=== PATIENT | male | born 1970 | race Caucasian/White ===

== ENCOUNTER → 2016-11-07 | Outpatient (CLI) | payer BC ==
--- NOTE | 2016-11-07 11:24 | US ---
EXAMINATION TYPE: US axilla extremity LT DATE OF EXAM: 11/07/2016 10:42 AM COMPARISON: NONE CLINICAL HISTORY: Left axillary swelling x 2 days. no other signs and symptoms; no trauma to area; no recent infections. Findings: multiple oval hypoechoic masses (possible lymph nodes) at left axilla at area of swelling; largest anterior hypoechoic mass with minimal hyperechoic hilum= 8.0 x 5.8 x 4.1cm; largest posterio r hypoechoic mass with minimal echogenic hilum= 6.6 x 4.7 x 3.2cm IMPRESSION: 1. Multiple masses within the left axilla may represent enlarged lymph nodes correlate clinically.
--- NOTE | 2016-11-08 12:04 | USB ---
Reason for exam: clinical finding. Indicated problem(s): lump or thickening in the left breast. US Breast LT Left breast ultrasound including all four quadrants, the retroareolar region and axilla demonstrates multiple axillary nodes, see ultrasound of left axilla. ASSESSMENT: Negative, BI-RAD 1 RECOMMENDATION: Surgical consultation of the left breast. Patient was scanned in the ER. Called Dr. Hendricks with ultrasound findings. PRELIMINARY REPORT CALLED AND FAXED TO DR. HENDRICKS ON 11/08/16 AT 300/TMP.
== END | disposition home or self-care (01) ==
LOC: RADXRMAIN 09:36
PROVIDERS: ATTEND Family Medicine
DX: R22.2 Localized swelling, mass and lump, trunk (principal)

== ENCOUNTER → 2016-11-17 | Outpatient (CLI) | payer BC ==
--- NOTE | 2016-11-17 22:34 | CT ---
EXAMINATION TYPE: CT chest wo con DATE OF EXAM: 11/17/2016 7:24 PM COMPARISON: NONE HISTORY: 46-year-old male left axillary swelling TECHNIQUE: Contiguous axial scanning of the contrast without IV contrast. Coronal and sagittal recons tructions performed. CT DLP: 569.9 mGycm Automated exposure control for dose reduction was used. FINDINGS: Heart is normal size without pericardial effusion. Mild coronary vessel calcifications are present. Aorta is normal caliber with conventional arch vessel branching anatomy. No mediastinal or hilar lymphadenopathy seen. However, there is venkat left axillary lymphadenopathy. 2 large left subpectoral lymph nodes measure 3.3 x 4.6 cm and 3.0 x 7.1 cm. Left axillary lymph node measures 4.4 x 5.1 cm. There is mild diffuse bronchial wall thickening without consolidation or pleural effusion. Mild right greater than left, asymmetric gynecomastia. There is a small hiatal hernia. Subcentimeter hypodensity lateral right kidney too small for accurate CT characterization. Bones: Mild endplate spondylosis throughout. No osseous destructive process. IMPRESSION: 1. MARKED LEFT AXILLARY LYMPHADENOPATHY WITH SUBPECTORAL LYMPH NODES MEASURING UP TO 7.1 CM AND LEFT AXILLARY LYMPH NODES MEASURING UP TO 5.1 CM. CONSIDER DIRECT TISSUE SAMPLING. LYMPHOMA AND METASTATIC DISEASE ARE IN THE DIFFERENTIAL. 2. MILD DIFFUSE BRONCHIAL WALL THICKENING COULD REPRESENT BRONCHITIS OR CHRONIC ASTHMA. 3. SMALL HIATAL HERNIA.
== END | disposition home or self-care (01) ==
LOC: RADCTMAIN 18:55
PROVIDERS: ATTEND Family Medicine
DX: R59.0 Localized enlarged lymph nodes (principal); J98.09 Other diseases of bronchus, not elsewhere classified
CPT/HCPCS: 71250

== ENCOUNTER 2016-11-28 08:53 | Day surgery (SDC) | payer BC ==
[2016-11-28 09:37] VITALS: RESP 16; TEMP 98.1
[2016-11-28 10:29] VITALS: BP 137/78; PULSE 94
--- NOTE | 2016-11-28 10:31 | US ---
Ultrasound-guided core biopsy left axilla mass CLINICAL HISTORY: Large left axilla mass FINDINGS: The procedure was explained to the patient. The risks, complications, benefits and alternatives were discussed and any questions were answered. Informed consent was obtained. Patient was placed supin e on the ultrasound table and prepped and draped in the usual sterile fashion. Utilizing a 18 gauge needle, 4 passes were made into the left axillary mass. Patient was stable throughout the procedure. Pathology is pending. All elements of maximal barrier technique were utilized. IMPRESSION: 1. Successful ultrasound guided core biopsy left axillary mass.
== END 2016-11-28 10:35 | disposition home or self-care (01) ==
LOC: RADPROMAIN 08:53
PROVIDERS: ATTEND Family Medicine
DX: D36.0 Benign neoplasm of lymph nodes (principal)
CPT/HCPCS: 38505; 76942; 88305; 88312; 88313; 88341; 88342

== ENCOUNTER 2016-12-30 06:24 | Day surgery (SDC) | payer BC ==
[2016-12-29 14:11] VITALS: BMI 38.0
[~2016-12-30 06:24] MED LIST: DEXAMETHASONE SOD PHOSPHATE 10 MG/ML 1 ML VIAL IV ONE; HEPARIN SODIUM,PORCINE 5,000 UNIT/ML 1 ML VIAL SQ ONE; HYDROmorphone 1 MG/ML 1 ML SYRINGE IVP PRN; LACTATED RINGERS 1,000 ML IV SCH; MIDAZOLAM 2 MG/2 ML VIAL IV PRN; ONDANSETRON 4 MG/2 ML VIAL IVP ONE; Pre Op ABX Message 1 EACH MISC MISCELLANE ONE; SCOPOLAMINE 1.5MG/72HR PATCH TRANSDERM ONE
[2016-12-30] MEDS ORDERED: LIDOCAINE 1% 20 ML VIAL (10MG/ML) FOR IV START INTRADERMA ONE (06:42)
[2016-12-30 06:51] LABS: Glucose,Whole Blood 137 mg/dL (75-99)
[2016-12-30 06:57] VITALS: TEMP 98.4
[2016-12-30] MEDS ORDERED: GLYCOPYRROLATE 0.2 MG/ML 2 ML VIAL ONE (07:40)
[2016-12-30] MEDS ORDERED: fentaNYL (PF) 50 MCG/ML 2 ML AMP ONE (07:40)
[2016-12-30] MEDS ORDERED: PROPOFOL 10 MG/ML 20 ML VIAL IV ONE (07:40)
[2016-12-30] MEDS ORDERED: ePHEDrine 50 MG/ML 1 ML AMP ONE (07:40)
[2016-12-30] MEDS ORDERED: MIDAZOLAM 2 MG/2 ML VIAL ONE (07:40)
[2016-12-30] MEDS ORDERED: LIDOCAINE 1% INJ 10MG/ML (20 ML MDV) ONE (07:40)
[2016-12-30] MEDS ORDERED: SUCCINYLCHOLINE CHLORIDE VIAL 200 MG/10 ML VIAL IV ONE (07:40)
[2016-12-30] MEDS ORDERED: SODIUM CHLORIDE 0.9% 50 ML with CLINDAMYCIN 900 MG IV ONE ×2 (07:59)
[2016-12-30] MEDS ORDERED: BUPIVACAIN-EPI 0.25%-1:200,000 30 ML VIAL SQ ONE ×2 (08:13)
[2016-12-30] MEDS ORDERED: LACTATED RINGERS 1,000 ML IV ONE (09:22)
--- NOTE | 2016-12-30 09:48 | P.OP ---
Date of Procedure: 12/30/16 Preoperative Diagnosis: Left axillary lymphadenopathy Morbid obesity BMI 38 Type 2 diabetes mellitus Hypertension Postoperative Diagnosis: Same Procedure(s) Performed: Left deep axillary open lymph node biopsy Anesthesia: MISHAA, local Surgeon: Flory Desir Pathology: other Condition: other (ASA3) Disposition: PACU Indications for Procedure: 46 years old male presents with massive left inguinal lymphadenopathy. Computed tomography scan showed an enlarged axillary lymph nodes. Informed consent obtained and patient elected to undergo left axillary lymph node biopsy for diagnostic purposes Operative Findings: 8 x 10 x 6 cm enlarged lymph node identified in the left axilla which extended deep to the level to lymph nodes. A 2 x 1 x 1 cm specimen was excised and sent off for pathologic examination Description of Procedure: General anesthesia with endotracheal intubation was performed as per anesthesia team. No muscle relaxants were given. Chlorhexidine was used to prep the left axilla. Sterile drapes were applied. A timeout was performed to verify correct patient and correct procedure. Patient was confirmed to receive perioperative IV antibiotics, heparin 5000 units subcutaneous injection for the VTE prophylaxis and bilateral SCDs were placed. A 4 cm skin incision was made along the inferior axillary hairline. This was extended deep to the subcutaneous tissue. The clavicopectoral fascia was identified and incised. Bulky large lymph node measuring at least 8 x 10 x 6 cm was identified extending deep into the level III lymph node area. Lymph node appeared vascular and surrounded by fibrofatty tissue which was taken down using a handheld ligasure. The lymph node appeared to be extending deep into the axillary space. Since this is only for diagnostic purpose decision was made to perform an excisional biopsy. 2 x 1 x 2 cm piece of lymph node was excised using hand-held LigaSure and sent fresh for pathologic exam. Hemostasis was checked. A SEMAJ drain was left in the axilla and was brought out through a separate stab incision . The resulting cavity was checked for hemostasis. This was closed in layers using 3-0 Vicryl interrupted sutures and 4-0 Monocryl running subcuticular sutures. The cavity was then closed in layers using 3-0 interrupted Vicryl and 4-0 running Monocryl subcuticular sutures. Dermabond was applied. Sponge, instrument and needle count were correct 2. Patient tolerated the procedure well and was taken to postanesthesia care unit in stable condition LEFT AXILLARY LYMPH NODE, EXCISIONAL BIOPSY ([id number] A1-A4; 12/30/16): NODULAR LYMPHOCYTE PREDOMINANT HODGKIN LYMPHOMA.
[2016-12-30 10:09] VITALS: RESP 16
[2016-12-30 11:43] VITALS: BP 124/61; PULSE 80
[2017-01-02 16:26] LABS: Mis test requested (Non-blood) B Cell Flow Cytometr
== END 2016-12-30 12:03 | disposition home or self-care (01) ==
LOC: OR 06:24
PROVIDERS: ATTEND Surgery
DX: C81.04 Nodular lymphocyte predominant Hodgkin lymphoma, lymph nodes of axilla and upper limb (principal); E66.01 Morbid (severe) obesity due to excess calories; Z68.38 Body mass index [BMI] 38.0-38.9, adult; E11.9 Type 2 diabetes mellitus without complications; I10 Essential (primary) hypertension; E78.5 Hyperlipidemia, unspecified; J45.909 Unspecified asthma, uncomplicated; G47.33 Obstructive sleep apnea (adult) (pediatric); K21.9 Gastro-esophageal reflux disease without esophagitis; Z88.1 Allergy status to other antibiotic agents; Z88.0 Allergy status to penicillin; Z88.2 Allergy status to sulfonamides; Z79.1 Long term (current) use of non-steroidal anti-inflammatories (NSAID); Z79.899 Other long term (current) drug therapy; Z87.891 Personal history of nicotine dependence
CPT/HCPCS: 88184; 88185; 88342; 88307; 88341; 38525; J2250; J0330; J1644; J1100; J2405; J2001; J3010; J2704

== ENCOUNTER 2017-01-13 10:00 | Day surgery (SDC) | payer BC ==
[2017-01-13 09:32] VITALS: BMI 38.0
[2017-01-13] MEDS ORDERED: LACTATED RINGERS 1,000 ML IV SCH (11:07)
[2017-01-13] MEDS ORDERED: SCOPOLAMINE 1.5MG/72HR PATCH TRANSDERM ONE (11:07)
[2017-01-13] MEDS ORDERED: ONDANSETRON 4 MG/2 ML VIAL IVP ONE (11:07)
[2017-01-13] MEDS ORDERED: DEXAMETHASONE SOD PHOSPHATE 10 MG/ML 1 ML VIAL IV ONE (11:07)
[2017-01-13] MEDS ORDERED: MIDAZOLAM 2 MG/2 ML VIAL IV PRN (11:07)
[2017-01-13] MEDS ORDERED: HYDROmorphone 1 MG/ML 1 ML SYRINGE IVP PRN (11:07)
[2017-01-13 11:31] VITALS: RESP 18; TEMP 98
[2017-01-13 11:33] LABS: Glucose,Whole Blood 113 mg/dL (75-99)
[2017-01-13] MEDS ORDERED: CLINDAMYCIN 900 MG in DEXTROSE 5% IN WATER 50 ML IVPB STA ×2 (13:08)
--- NOTE | 2017-01-13 13:13 | P.GSHP ---
History of Present Illness H&P Date: 01/13/17 Chief Complaint: Lymphoma 46 years old male presented with axillary lymphadenopathy. He is status post open left axillary lymph node biopsy and shows non-Hodgkin's lymphoma. Informed consent obtained and patient elected to undergo MediPort placement for chemotherapy. Past Medical History Past Medical History: Asthma, Cancer, Diabetes Mellitus, GERD/Reflux, Hyperlipidemia, Hypertension, Sleep Apnea/CPAP/BIPAP Additional Past Medical History / Comment(s): lymph node enlargement, childhood asthma, bronchitis , hodgkins lymphoma History of Any Multi-Drug Resistant Organisms: None Reported Past Surgical History: Orthopedic Surgery Additional Past Surgical History / Comment(s): jacki wrist carpal tunnel, vasectomy, colonoscopy, lymph node biopsy Past Anesthesia/Blood Transfusion Reactions: No Reported Reaction Past Psychological History: No Psychological Hx Reported Smoking Status: Former smoker Past Alcohol Use History: Rare Additional Past Alcohol Use History / Comment(s): quit smoking 2014 approx, chew and smoking for about 10 -15 yrs on and off Past Drug Use History: None Reported - Past Family History Father Family Medical History: Cancer Additional Family Medical History / Comment(s): prostate Medications and Allergies Home Medications Medication Instructions Recorded Confirmed Type Empagliflozin/Linagliptin 1 tab PO DAILY 11/22/16 01/13/17 History [Glyxambi 25 mg-5 mg Tablet] Ibuprofen [Motrin] 400 mg PO Q6HR PRN 11/22/16 01/13/17 History Cetirizine HCl [Zyrtec] 10 mg PO DAILY 12/29/16 01/13/17 History Lisinopril-Hctz 20-12.5 mg 1 tab PO DAILY 12/29/16 01/13/17 History [Zestoretic 20-12.5] Sudafed(Dose Unknown) 2 tab PO QAM 12/29/16 01/13/17 History Allergies Allergy/AdvReac Type Severity Reaction Status Date / Time penicillin G Allergy Dyspnea Verified 01/13/17 09:15 Penicillins Allergy Rash/Hives Verified 01/13/17 09:15 Sulfa (Sulfonamide Allergy Rash/Hives Verified 01/13/17 09:15 Antibiotics) cephalexin [From Keflex] AdvReac Rash/Hives Verified 01/13/17 11:13 Surgical - Exam Vital Signs Temp Pulse Resp BP Pulse Ox 98.0 F 64 18 121/67 98 01/13/17 11:28 01/13/17 11:28 01/13/17 11:28 01/13/17 11:28 01/13/17 11:28 General: Patient is alert and oriented to time, place and person and cooperative with exam. He is not in acute distress. HEENT: No pallor, no icterus, no thyroid enlargement, no cervical lymphadenopathy. Chest: Bilateral equal breath sounds present. No wheezes, no crackles. Cardiovascular: Regular rate and rhythm. Abdomen: Soft, nontender, nondistended. Left axillary incision well healed. SEMAJ drain in place and has serous discharge Neurologic: Cranial nerves II-XII intact. Strength upper and lower extremities 5/5. No focal neurologic deficits. Gait is normal. Psychiatric: No anxiety or psychosis. No suicidal thoughts. Results - Labs Abnormal Lab Results - Last 24 Hours (Table) 01/13/17 Range/Units 11:31 POC Glucose (mg/dL) 113 H (75-99) mg/dL Assessment and Plan (1) Hodgkin lymphoma Status: Acute (2) Hodgkin lymphoma Status: Acute Plan: 46 years old male with Hodgkin's lymphoma and axillary lymphadenopathy 1. Status post open axillary lymph node biopsy 2. Mediport placement for chemotherapy. 3. Informed consent obtained from the patient after explaining the risks, benefits and potential complications including bleeding, infection, inadvertent arterial injury, pneumothorax and patient elected to undergo the procedure.
[2017-01-13] MEDS ORDERED: fentaNYL (PF) 50 MCG/ML 2 ML AMP ONE (13:26)
[2017-01-13] MEDS ORDERED: KETAMINE 10 MG/ML 20 ML VIAL ONE (13:26)
[2017-01-13] MEDS ORDERED: PROPOFOL 10 MG/ML 20 ML VIAL IV ONE (13:26)
[2017-01-13] MEDS ORDERED: MIDAZOLAM 2 MG/2 ML VIAL ONE (13:26)
[2017-01-13] MEDS ORDERED: BUPIVACAIN-EPI 0.25%-1:200,000 30 ML VIAL SQ ONE ×2 (13:59)
[2017-01-13] MEDS ORDERED: HEPARIN SODIUM,PORCINE 100 UNIT/ML 5 ML VIAL IV ONE (14:00)
[2017-01-13] MEDS ORDERED: LACTATED RINGERS 1,000 ML IV ONE (14:02)
[2017-01-13 14:44] VITALS: PULSE 67
--- NOTE | 2017-01-13 14:45 | P.OP ---
Date of Procedure: 01/13/17 Preoperative Diagnosis: Hodgkin's lymphoma Obesity BMI 38 Hypertension Postoperative Diagnosis: Same Procedure(s) Performed: Right internal jugular 8-Nepali Mediport placement under SonoSite and fluoroscopic guidance Implants: POWERPORT REF:[id number] lOT #[id number] 2018-10-05 Anesthesia: MAC Surgeon: Flory Desir Estimated Blood Loss (ml): 10 Pathology: none sent Condition: stable Disposition: PACU Indications for Procedure: 46 years old male recently diagnosed with Hodgkin lymphoma presents for Mediport placement for chemotherapy. Informed consent obtained and he elected to undergo Mediport placement under SonoSite and fluoroscopic guidance. Description of Procedure: The patient was brought to the operating room and placed in supine position with both arms tucked. A footboard was placed. Chlorhexidine was used to prep the neck followed by application of sterile drapes and an Ioban dressing . A timeout was performed to verify correct patient and correct procedure. Patient was confirmed to receive perioperative IV antibiotics and VTE prophylaxis. An ultrasound was performed of the right neck to identify the carotid artery and internal jugular vein. The internal jugular vein was compressible and patent . Photodocumentation was made. Local anesthetic was infiltrated to create a field block. Seldinger technique was used and the right internal jugular vein was accessed under direct ultrasound guidance. There was good backflow of dark venous blood. The guidewire was inserted and fluoroscopic images obtained to confirm the tip in SVC. The needle was removed followed by insertion of a dilator peel-away sheath. Local anesthetic was infiltrated along the inferior aspect of the right clavicle. A 2.5 cm skin incision was made and dissection was carried up to the pectoralis major muscle. A pocket was created for the port. The catheter tubing was connected to the port using the conector after flushing both the port and the catheter with normal saline. The tunneling device was connected to the end of the catheter and after placement of the port in the subcutaneous pocket the tunneling device was passed from the lower incision to the counter incision in the neck. The catheter was measured at the junction of SVC and right atrium. The inner cannula of the peel-away sheath was removed and catheter was gradually inserted. The peel-away sheath was gradually removed. Fluoroscopic image confirmed the tip of the catheter at the junction of SVC and right atrium. There was no kink, fold or torsion of the catheter and the port. The Bone needle was used to access the port and easy backflow was obtained. This was flushed with 10 mL of normal saline and 10 mL of Hep-Lock was inserted. The skin incision was closed in 3 layers using 3-0 Vicryl interrupted stitches and a running suture of 4-0 Monocryl. Counter incision in the neck was also closed using 3-0 Vicryl followed by 4-0 Monocryl. Dermabond skin glue was applied followed by Telfa and Tegaderm dressing. The sponge, instrument and needle count were correct x2 Patient tolerated the procedure well and was taken to post anesthesia care unit in stable condition Final chest x-ray showed the tip of the catheter in SVC and no pneumothorax.
--- NOTE | 2017-01-13 15:09 | XR ---
EXAMINATION TYPE: XR chest 1V confirm line [facility] DATE OF EXAM: 01/13/2017 3:04 PM HISTORY: port placement . REFERENCE: NONE. FINDINGS: A MediPort is in place via a right internal jugular approach. Its tip is in the superior ve na cava. I do not see evidence of pneumothorax. The lungs are clear. Pleural spaces are clear. Heart size is normal. IMPRESSION: STATUS POST MEDIPORT PLACEMENT
[2017-01-13 15:11] VITALS: BP 124/56
--- NOTE | 2017-01-16 09:13 | FL ---
Fluoroscopy HISTORY: Central catheter placement 44 seconds fluoroscopy time supplied to the referring clinician. 1 intraoperative C-arm images docum ent the procedure. See dictated report from general surgery.
--- NOTE | 2017-01-18 09:26 | CDI ---
Pt Name: Imtiaz Underwood CONFIDENTIAL MR#: [id number] Adm Date: 01/13/2017 10:00:00 AM Printed:01/18/2017 Physician Documentation Request Page 1 of 2 ICD-10-CM Ready Physicians Documentation Request Patient: Imtiaz Underwood EPI: [id number] Account: [id number] Payer: [facility] Facility: [facility] Location: - Admit Date: 01/13/2017 10:00:00 AM Query Send By: Blanca Arzola Phone #: Ext. Communication Date: 01/18/2017 9:20:00 AM Clarification Outpatient By submitting this query, we are merely seeking further clarification of documentation to accurately reflect all conditions that you are monitoring, evaluating, treating or that extend the hospitalization or utilize additional resources of care. Please utilize your independent clinical judgment when addressing the question(s) below. Dear Doctor Flory Desir, The patients Clinical Indicators include: see below Documentation Clarification OP There is conflicting documentation on this account regarding the patient's lymphoma diagnosis. Page 1 of H&P, Anesthesia Record, and the Order state Non- Hodgkin's Lymphoma. Page 3 of H&P and Op Note state Hodgkin's Lymphoma. Please issue an addendum on this account to clarify if the patient has: A. Non-Hodgkin's Lymphoma B. Hodgkin's Lymphoma The correct diagnosis is needed for proper coding and billing purposes. Thank you. PLEASE DOCUMENT ANY ADDITIONAL DIAGNOSES AND/OR SPECIFICITY IN THE PROGRESS NOTES AND/OR DISCHARGE SUMMARY. Agreed & documented Unable to determine/unknown Disagree with the above request Need to discuss MTDD
== END 2017-01-13 16:04 | disposition home or self-care (01) ==
LOC: OR 10:00
PROVIDERS: ATTEND Surgery
DX: C81.94 Hodgkin lymphoma, unspecified, lymph nodes of axilla and upper limb (principal); E66.9 Obesity, unspecified; Z68.38 Body mass index [BMI] 38.0-38.9, adult; I10 Essential (primary) hypertension; J45.909 Unspecified asthma, uncomplicated; J44.9 Chronic obstructive pulmonary disease, unspecified; E11.9 Type 2 diabetes mellitus without complications; K21.9 Gastro-esophageal reflux disease without esophagitis; E78.5 Hyperlipidemia, unspecified; G47.33 Obstructive sleep apnea (adult) (pediatric); Z79.1 Long term (current) use of non-steroidal anti-inflammatories (NSAID); Z79.899 Other long term (current) drug therapy; Z88.0 Allergy status to penicillin; Z88.2 Allergy status to sulfonamides; Z87.891 Personal history of nicotine dependence
CPT/HCPCS: 36561; 77001; C1788; J2250; J1642; J1100; J2405; J3010; J2704

== ENCOUNTER → 2017-01-14 | Outpatient (CLI) | payer BC ==
--- NOTE | 2017-01-15 06:39 | PE ---
EXAMINATION TYPE: PET CT fusion skull to thigh DATE OF EXAM: 01/14/2017 1:23 PM CLINICAL HISTORY: Lymphoma initial staging study after biopsy left axillary level December 30, 2016. TECHNIQUE: Following the intravenous administration of 13.12 mCi of F-18 FDG, whole body images are performed from the skull base to the midthigh. Images are reviewed on the computer in the coronal, axial, and sagittal planes. Reconstructed rotating images are created on independent workstation and reviewed on the computer. A non-contrast CT is performed in conjunction with the PET scan. COMPARISON: CT chest November 17, 2016. FINDINGS: SKULL BASE AND NECK: No suspicious hypermetabolic uptake is seen in the neck to suggest neck adenopa thy. CHEST, MEDIASTINUM, AND HILAR REGION: Corresponding to CT there are multiple enlarged left axillary l ymph nodes with abnormal hypermetabolic uptake, for reference one of the largest lymph nodes is infer iorly measuring 5.5 x 3.3 cm on axial image 95 with max SUV of 4.62. There is percutaneous drainage c atheter from recent biopsy without significant residual fluid collection. No additional areas of abnormal adenopathy or hypermetabolic uptake are seen in the chest including r ight axilla or mediastinum. ABDOMEN AND PELVIS: No suspicious hypermetabolic uptake is seen in the abdomen or pelvis. No hepatosp lenomegaly is noted. No suspicious groin adenopathy is seen. OSSEOUS STRUCTURES: No suspicious hypermetabolic uptake is seen in osseous structures. OTHER CT: There is hypoplastic or small caliber left maxillary sinus. There is right internal jugular Mediport catheter with tip in SVC. Liver is isodense relative to spleen suggesting mild diffuse fatty infiltration. There are some diverticula scattered throughout the colon. No acute diverticulitis is evident. IMPRESSION: Abnormal adenopathy with hypermetabolic uptake corresponds to biopsy-proven lymphoma left axillary region. No additional areas of malignancy identified in the remainder of body.
== END | disposition home or self-care (01) ==
LOC: RADPETMAIN 07:56
PROVIDERS: ATTEND Internal Medicine Hematology & Oncology
DX: R59.0 Localized enlarged lymph nodes (principal)
CPT/HCPCS: 78815; A9552

== ENCOUNTER 2017-01-16 07:00 | Day surgery (SDC) | payer BC ==
[2017-01-12 15:14] VITALS: BMI 38.0
[~2017-01-16 07:00] MED LIST changes: -DEXAMETHASONE SOD PHOSPHATE 10 MG/ML 1 ML VIAL IV ONE; -HEPARIN SODIUM,PORCINE 5,000 UNIT/ML 1 ML VIAL SQ ONE; -HYDROmorphone 1 MG/ML 1 ML SYRINGE IVP PRN; -MIDAZOLAM 2 MG/2 ML VIAL IV PRN; -ONDANSETRON 4 MG/2 ML VIAL IVP ONE; -Pre Op ABX Message 1 EACH MISC MISCELLANE ONE; -SCOPOLAMINE 1.5MG/72HR PATCH TRANSDERM ONE
[2017-01-16] MEDS ORDERED: LIDOCAINE 1% 20 ML VIAL (10MG/ML) FOR IV START INTRADERMA ONE (07:40)
[2017-01-16 07:43] VITALS: TEMP 98.8
[2017-01-16 07:49] LABS: Glucose,Whole Blood 129 mg/dL (75-99)
[2017-01-16] MEDS ORDERED: PROPOFOL 10 MG/ML 20 ML VIAL IV ONE (08:05)
[2017-01-16 08:34] VITALS: RESP 16
[2017-01-16 08:43] LABS: Basophils # (A) 0.1 k/uL (0-0.2); Basophils % (A) 1 %; CHCM 34.2; Eosinophils # (A) 0.2 k/uL (0-0.7); Eosinophils % (A) 3 %; HCT 49.6 % (39.0-53.0); HDW 2.62; HGB 16.6 gm/dL (13.0-17.5); Luc # (Auto) 0.23; Luc % (Auto) 3; Lymphocytes # (A) 1.6 k/uL (1.0-4.8); Lymphocytes % (A) 22 %; MCH 29.5 pg (25.0-35.0); MCHC 33.5 g/dL (31.0-37.0); Mean Platelet Volume 7.5; Monocytes # (A) 0.9 k/uL (0-1.0); Monocytes % (A) 12 %; Neutrophils # (A) 4.2 k/uL (1.3-7.7); Neutrophils % (A) 59 %; RBC 5.63 m/uL (4.30-5.90); RDW 12.8 % (11.5-15.5); WBC 7.2 k/uL (3.8-10.6); WBC (Perox) 7.31
[2017-01-16 08:57] VITALS: BP 119/68; PULSE 69
--- NOTE | 2017-01-16 20:35 | OP ---
DATE OF SERVICE: 01/16/2017 SURGEON: JACQUELIN WILL MD PREOPERATIVE DIAGNOSIS: Recent diagnosis of Hodgkin lymphoma for staging. PROCEDURE: Bone marrow aspiration and biopsy. DESCRIPTION OF PROCEDURE: After obtaining informed consent from the patient, the procedure was performed in the endoscopy suite under general anesthesia, performed by the Anesthesia Team. The patient was put in the left lateral decubitus position. The ( ) superior iliac crest was localized. The skin was cleansed with ChloraPrep. All sterile procedures were followed. Next, 2 mL 1% Xylocaine was used for local anesthetic. A 4 inch Jamshidi needle was inserted, about 15 mL of aspirate and about 1.5 cm core biopsy was obtained without any difficulties. Pressure applied afterward. There was negligible blood loss. The patient tolerated the procedure very well without any immediate complications.
== END 2017-01-16 09:02 | disposition home or self-care (01) ==
LOC: OR 07:00
PROVIDERS: ATTEND Internal Medicine Hematology & Oncology
DX: C81.04 Nodular lymphocyte predominant Hodgkin lymphoma, lymph nodes of axilla and upper limb (principal); E11.9 Type 2 diabetes mellitus without complications; I10 Essential (primary) hypertension; J45.909 Unspecified asthma, uncomplicated; Z79.84 Long term (current) use of oral hypoglycemic drugs; Z79.1 Long term (current) use of non-steroidal anti-inflammatories (NSAID); Z79.891 Long term (current) use of opiate analgesic; Z79.899 Other long term (current) drug therapy; Z88.2 Allergy status to sulfonamides; Z91.010 Allergy to peanuts; Z87.891 Personal history of nicotine dependence
CPT/HCPCS: 85025; 38221; J2704; G0364

== ENCOUNTER → 2017-03-25 | Outpatient (CLI) | payer BC ==
--- NOTE | 2017-03-27 18:08 | PE ---
EXAMINATION TYPE: PET CT fusion skull to thigh DATE OF EXAM: 03/25/2017 2:49 PM CLINICAL HISTORY: 46-year-old male Hodgkin's lymphoma, subsequent staging. Chemotherapy last on 017. TECHNIQUE: Following the intravenous administration of 14.65 mCi of F-18 FDG, whole body images are performed from the skull base to the midthigh. Images are reviewed on the computer in the coronal, axial, and sagittal planes. Reconstructed rotating images are created on independent workstation and reviewed on the computer. A localization and attenuation correction CT is performed in conjunction with the PET scan. Glucose level: 125 mg/dL COMPARISON: 01/14/2017 FINDINGS: PET: Physiologic FDG uptake within the neck. Left axillary and subpectoral lymphadenopathy is redemonstrated. The largest lymph node in the axilla measures 3.8 x 2.5 cm with additional small axillary lymph nodes measuring up to 1.3 cm short axis. This is in comparison to 5.4 x 3.6 and 2.3 cm, respectively on prior. Subpectoral lymph node measures up to 2.5 x 1.4 cm versus 4.5 x 2.9 cm, previously. These lymph nodes show significantly decreased FDG uptake, now Max SUV 1.8 versus 4.6, previously. Variable mild bowel activity likely physiologic. Otherwise, physiologic FDG uptake within the abdomen and pelvis. ATTENUATION CORRECTION CT: Right anterior chest wall injection port with catheter tip at the lower SVC. Visualized paranasal sinuses and mastoid air cells are clear. No cervical lymphadenopathy seen. The heart is upper limits of normal in size and coronary vessel calcifications which are a marker for coronary artery disease. Aorta is normal caliber with conventional arch vessel branching anatomy. No mediastinal or hilar lymphadenopathy appreciated on noncontrast CT. No consolidation or pleural effu jud. There is a small hiatal hernia. No dilated small bowel, free fluid, or free air. Scattered small mese nteric lymph nodes are similar. Tiny fatty umbilical hernia. No abnormal fluid collection in the pelvis. A prominent 9 mm right external iliac chain lymph node is unchanged from prior and shows no discrete FDG uptake. Bones: Degenerative anterior spurring at the SI joints. Mild endplate spondylosis thoracic spine and cervical spondylosis. No osseous destructive process. IMPRESSION: Decreasing size of the left axillary and subpectoral lymph nodes. The largest measures 3.8 cm versus 5.4 cm, previously. No significant residual metabolic activity remains.
== END | disposition home or self-care (01) ==
LOC: RADPETMAIN 07:28
PROVIDERS: ATTEND Internal Medicine Hematology & Oncology
DX: C81.04 Nodular lymphocyte predominant Hodgkin lymphoma, lymph nodes of axilla and upper limb (principal)
CPT/HCPCS: 78815; A9552

== ENCOUNTER 2017-05-24 10:01 | Day surgery (SDC) | payer BC ==
[2017-05-18 11:34] VITALS: BMI 39.0
[~2017-05-24 10:01] MED LIST changes: +CLINDAMYCIN 900 MG in DEXTROSE 5% IN WATER 50 ML IVPB ONE; +LIDOCAINE 1% 20 ML VIAL (10MG/ML) FOR IV START INTRADERMA PRN
[2017-05-24] MEDS ORDERED: BUPIVACAIN-EPI 0.25%-1:200,000 30 ML VIAL SQ ONE ×3 (10:08→11:05)
[2017-05-24 10:33] VITALS: RESP 16; TEMP 99.2
[2017-05-24 10:33] LABS: Glucose,Whole Blood 128 mg/dL (75-99)
[2017-05-24] MEDS ORDERED: LIDOCAINE 1% 20 ML VIAL (10MG/ML) FOR IV START INTRADERMA ONE (10:38)
[2017-05-24] MEDS ORDERED: DEXAMETHASONE SOD PHOSPHATE 10 MG/ML 1 ML VIAL IV ONE (10:38)
[2017-05-24] MEDS ORDERED: ONDANSETRON 4 MG/2 ML VIAL IVP ONE (10:39)
[2017-05-24] MEDS ORDERED: fentaNYL (PF) 50 MCG/ML 2 ML AMP ONE (10:43)
[2017-05-24] MEDS ORDERED: PROPOFOL 10 MG/ML 20 ML VIAL IV ONE (10:43)
[2017-05-24] MEDS ORDERED: MIDAZOLAM 2 MG/2 ML VIAL ONE (10:43)
[2017-05-24] MEDS ORDERED: LIDOCAINE 1% INJ 10MG/ML (20 ML MDV) ONE (10:43)
[2017-05-24 12:01] VITALS: BP 130/59; PULSE 68
--- NOTE | 2017-05-26 18:46 | P.OP ---
Date of Procedure: 05/24/17 Preoperative Diagnosis: Hodgkin's lymphoma status post chemo and radiation Postoperative Diagnosis: Same Procedure(s) Performed: Removal of right internal jugular Port-A-Cath catheter Implants: NA Anesthesia: MAC Surgeon: Flory Desir Pathology: none sent Condition: stable Disposition: PACU Indications for Procedure: 46 years old male status post chemo and radiation for Hodgkin's lymphoma presents for MediPort removal. Informed consent obtained and patient elected to undergo the procedure. Operative Findings: Right internal jugular Mediport and catheter was removed completely Description of Procedure: This and was brought to the operating room and placed in supine position. IV sedation was given as per anesthesia team. A timeout was performed to verify correct patient and correct procedure. Patient was confirmed to receive perioperative IV antibiotics. Chlorhexidine was used to prep the skin followed by application of sterile drapes. A 2.5 cm skin incision was made along the prior right infraclavicular incision. Circumferential dissection was carried around until all the sutures were removed. The port as well as the catheter was removed completely. Pressure was held at the entry site. The resulting defect was closed in 2 layers using interrupted sutures of 3-0 Vicryl and running 4-0 Monocryl. Dermabond skin glue was applied. Sponge, instrument and needle count were correct 2. Patient tolerated the procedure well and was taken to postanesthesia care unit in stable condition
== END 2017-05-24 12:06 | disposition home or self-care (01) ==
LOC: OR 10:01
PROVIDERS: ATTEND Surgery
DX: Z45.2 Encounter for adjustment and management of vascular access device (principal); C81.90 Hodgkin lymphoma, unspecified, unspecified site; Z92.3 Personal history of irradiation; Z92.21 Personal history of antineoplastic chemotherapy; J45.909 Unspecified asthma, uncomplicated; G47.33 Obstructive sleep apnea (adult) (pediatric); Z99.89 Dependence on other enabling machines and devices; Z88.1 Allergy status to other antibiotic agents; Z88.0 Allergy status to penicillin; Z88.2 Allergy status to sulfonamides; Z79.899 Other long term (current) drug therapy; Z87.891 Personal history of nicotine dependence
CPT/HCPCS: 36590; J2250; J1100; J2405; J2001; J3010; J2704

== ENCOUNTER → 2017-07-01 | Outpatient (CLI) | payer BC ==
--- NOTE | 2017-07-01 12:54 | PE ---
EXAMINATION TYPE: PET CT fusion skull to thigh DATE OF EXAM: 07/01/2017 COMPARISON: 03/28/2017 Prior PET/CT: 03/25/2017 HISTORY: Hodgkin's lymphoma. TECHNIQUE: Following the intravenous administration of 13.5 mCi of F-18 FDG, whole body images are p erformed from the skull base to the midthigh. Images are reviewed on the computer in the coronal, ax ial, and sagittal planes. Reconstructed rotating images are created on independent workstation and r eviewed on the computer. A localization and attenuation correction CT is performed in conjunction w ith the PET scan. DLP: 665.81 mGycm SCAN: Subsequent follow-up Blood glucose: 135 mg/dL Average Mediastinum SUV: 1.2 Average Liver SUV: 2.2 FINDINGS: NECK: No abnormal uptake THORAX: No abnormal uptake. There is very subtle signal within the enlarged left axillary lymph node measuring 1.7 SUV. No suspicious mediastinal or axillary adenopathy is otherwise hyperintense. ABDOMEN: No abnormal uptake PELVIS: No abnormal uptake OSSEOUS STRUCTURES: No abnormal uptake LOCALIZATION CT: There is a 2.4 cm lymph node left axillary region. A small lymph nodes in the pretra cheal space. The ascending thoracic aorta at the level of the main pulmonary artery is 3.7 cm. The ma in pulmonary artery the bifurcation is 3.3 cm. Coronary artery calcification is present. Small hiatal hernia is present. Some shotty lymphadenopathy is in the periaortic region. Few small diverticuli ar e within the sigmoid colon. COMPARISON: This is compared to the 03/25/2017 study. No significant interval changes evident. IMPRESSION: 1. No suspicious uptake to suggest recurrent lymphoma.
== END | disposition home or self-care (01) ==
LOC: RADPETMAIN 07:23
PROVIDERS: ATTEND Radiology Radiation Oncology
DX: C81.04 Nodular lymphocyte predominant Hodgkin lymphoma, lymph nodes of axilla and upper limb (principal)
CPT/HCPCS: 78815; A9552

== ENCOUNTER → 2017-07-19 | Outpatient (CLI) | payer BC ==
[2017-07-19 10:13] LABS: Basophils % (A) 0 %; CH 29.8; CHCM 33.8; Eosinophils # (A) 0.2 k/uL (0-0.7); Eosinophils % (A) 4 %; HCT 48.2 % (39.0-53.0); HGB 16.5 gm/dL (13.0-17.5); Luc # (Auto) 0.21; Luc % (Auto) 4; Lymphocytes # (A) 0.4 k/uL (1.0-4.8); Lymphocytes % (A) 7 %; MCH 30.2 pg (25.0-35.0); MCHC 34.2 g/dL (31.0-37.0); MCV 88.3 fL (80.0-100.0); Mean Platelet Volume 7.3; Monocytes # (A) 0.8 k/uL (0-1.0); Monocytes % (A) 14 %; Neutrophils # (A) 4.2 k/uL (1.3-7.7); Neutrophils % (A) 71 %; RBC 5.46 m/uL (4.30-5.90); RDW 13.2 % (11.5-15.5); WBC 5.9 k/uL (3.8-10.6); WBC (Perox) 6.14
[2017-07-19 10:22] LABS: ALT 50 U/L (21-72); AST 31 U/L (17-59); Alkaline Phosphatase 67 U/L (38-126); Anion Gap 13 mmol/L; Blood Urea Nitrogen 11 mg/dL (9-20); Carbon Dioxide 22 mmol/L (22-30); Chloride 101 mmol/L (98-107); Cholesterol 121 mg/dL (<200); Glucose 128 mg/dL (74-99); HDL Cholesterol 29 mg/dL (40-60); Non-African American GFR(MDRD) >60 (>60 ml/min/1.73 sqM); Potassium 4.4 mmol/L (3.5-5.1); Sodium 136 mmol/L (137-145); Total Bilirubin 0.6 mg/dL (0.2-1.3); Total Protein 7.1 g/dL (6.3-8.2)
== END | disposition home or self-care (01) ==
LOC: LABWHC1 09:14
PROVIDERS: ATTEND Nurse Practitioner Adult Health
DX: E11.9 Type 2 diabetes mellitus without complications (principal)
CPT/HCPCS: 36415; 80053; 80061; 84439; 84443; 85025

== ENCOUNTER → 2018-08-09 | Outpatient (CLI) | payer OTHER, BC ==
[2018-08-09 17:28] LABS: Blood Urea Nitrogen 14 mg/dL (9-20)
--- NOTE | 2018-08-10 08:21 | CT ---
EXAMINATION TYPE: CT ChestAbdPelvis wo/w con DATE OF EXAM: 08/09/2018 COMPARISON: PET/CT dated 07/01/[address] chest dated 11/17/2016 HISTORY: follow up for lymphoma CT DLP: 4249 mGycm. Automated Exposure Control for Dose Reduction was Utilized. CONTRAST: CT scan of the thorax, abdomen and pelvis is performed without and with IV Contrast, patient injected with 100 mL of Isovue 300. FINDINGS: LUNGS: The lungs are grossly clear, there is no concerning parenchymal mass or nodule identified. T here is no pleural effusion or pneumothorax seen. The tracheobronchial tree is patent. MEDIASTINUM: There are no greater than 1 cm hilar or mediastinal lymph nodes. No pericardial effusi on is seen. OTHER: There is interval increase in size of the left axillary lymph node producing measuring 2.4 cm in short axis and now measuring 2.1 cm. No other enlarged axillary lymph nodes are seen bilaterally. Minimal bilateral retroareolar gynecomastia is noted incidentally. There is redemonstration of a smal l hiatal hernia. LIVER/GB: No significant abnormality is appreciated. No cholelithiasis. PANCREAS: No significant abnormality is seen. No ductal dilatation. SPLEEN: No significant abnormality is seen. No splenomegaly as the spleen measures 11.9 cm in cranioc audal dimension. ADRENALS: No significant abnormality is seen. No nodularity or thickening. KIDNEYS: There is a fluid attenuated right renal cyst in the upper pole measuring 1.6 cm. No hydronep hrosis. No suspicious renal lesions. No perinephric fluid collections. BOWEL: No dilated bowel. Few colonic diverticula are incidentally seen without pericolonic fat stran ding. Moderate stool burden and lack of progression of contrast into the colon limits colonic evaluat ion. LYMPH NODES: A prominent portacaval lymph node measures 1.4 cm in short axis, unchanged from the prio r. Scattered nonenlarged central mesenteric lymph nodes are seen her near the root of the mesentery a nd in the periaortic and aortocaval regions such as on series 3 image 68 measuring 7 mm in short axis and within the right lower quadrant on image 87 measuring 9 mm in short axis. In comparison to the m ost recent PET of 07/01/2017 these appear stable. There is a 1 cm short axis right external iliac christoph n lymph node on image 110, also stable. Right superficial femoral lymph node measures 1.2 cm on image 127. These are also overall stable from the prior PET/CT. No hypermetabolic activity was seen within these lymph nodes on the prior of 07/01/2017. OSSEOUS STRUCTURES: No suspicious abnormality is seen. Mild multilevel degenerative changes of the sp ine. IMPRESSION: Stable disease. Minimal decrease in size of the left axillary adenopathy, stable prominen t portacaval lymph node, stable mildly enlarged right external chain and superficial inguinal lymph n odes, and stable prominent mesenteric lymph nodes that did not demonstrate hypermetabolic activity on the recent PET of 07/01/2017. No new no evidence for osseous or visceral involvement. No splenomegaly .
== END | disposition home or self-care (01) ==
LOC: RADCTMAIN 16:57
PROVIDERS: ATTEND Internal Medicine Hematology & Oncology
DX: C81.04 Nodular lymphocyte predominant Hodgkin lymphoma, lymph nodes of axilla and upper limb (principal); I10 Essential (primary) hypertension; J45.998 Other asthma; E11.9 Type 2 diabetes mellitus without complications
CPT/HCPCS: 82565; 84520; 71270; 74178; 36415; Q9967

== ENCOUNTER 2019-01-11 06:52 | Day surgery (SDC) | payer BC, OTHER ==
[2019-01-09 12:20] VITALS: BMI 38.6
[~2019-01-11 06:52] MED LIST changes: -CLINDAMYCIN 900 MG in DEXTROSE 5% IN WATER 50 ML IVPB ONE; -LIDOCAINE 1% 20 ML VIAL (10MG/ML) FOR IV START INTRADERMA PRN
[2019-01-11 07:22] VITALS: RESP 18; TEMP 98
[2019-01-11] MEDS ORDERED: PROPOFOL 10 MG/ML 20 ML VIAL IV ONE (07:39)
[2019-01-11 07:41] LABS: Glucose,Whole Blood 147 mg/dL (75-99)
--- NOTE | 2019-01-11 07:59 | P.PCN ---
Date of Procedure: 01/11/19 Procedure(s) Performed: BRIEF HISTORY: Patient is a 48-year-old pleasant white male, scheduled for an elective colonoscopy as a part of screening for colonic neoplasia. PROCEDURE PERFORMED: Colonoscopy. PREOPERATIVE DIAGNOSIS: Screening for colon cancer. IV sedation per Anesthesia. PROCEDURE: After informed consent was obtained, the patient, was brought into the endoscopy unit. IV sedation was administered by Anesthesia under continuous monitoring. Digital rectal examination was normal. Initially the Olympus CF-160 flexible video colonoscope was then inserted in the rectum, gradually advanced into the cecum without any difficulty. Careful examination was performed as the scope was gradually being withdrawn. Ileocecal valve and the appendiceal orifice were visualized and appeared normal. Prep was excellent. Mucosa of the cecum, ascending colon, transverse colon, descending colon, sigmoid colon, and rectum appeared normal. Retroflexion was performed in the rectum and no lesions were seen. The patient tolerated the procedure well. IMPRESSION: Normal-appearing colon from rectum to cecum with no evidence of colorectal neoplasia. RECOMMENDATIONS: Findings of this examination were discussed with the patient well as his family. He was advised to have a repeat screening colonoscopy in 10 years.
[2019-01-11 08:19] VITALS: PULSE 66
[2019-01-11 08:27] VITALS: BP 118/71
== END 2019-01-11 08:50 | disposition home or self-care (01) ==
LOC: ORWHC2ENDO 06:52
PROVIDERS: ATTEND Internal Medicine Gastroenterology
DX: Z12.11 Encounter for screening for malignant neoplasm of colon (principal); Z88.0 Allergy status to penicillin; Z88.2 Allergy status to sulfonamides; G47.33 Obstructive sleep apnea (adult) (pediatric); I10 Essential (primary) hypertension; Z79.899 Other long term (current) drug therapy
CPT/HCPCS: J2704; G0121

== ENCOUNTER → 2019-09-16 | Outpatient (CLI) | payer BC ==
[2019-09-16 17:12] LABS: African American GFR (CKD) >90 (>60 ml/min/1.73 sqM); Blood Urea Nitrogen 12 mg/dL (9-20)
--- NOTE | 2019-09-17 07:51 | CT ---
EXAMINATION TYPE: CT ChestAbdPelvis w con DATE OF EXAM: 09/16/2019 COMPARISON: Chest, abdomen, and pelvis CT dated 08/09/2018 and PET/CT dated 07/01/2017. HISTORY: Follow-up for lymphoma. CT DLP: 2363.7 mGycm. Automated Exposure Control for Dose Reduction was Utilized. CONTRAST: CT scan of the thorax, abdomen and pelvis is performed with IV Contrast, patient injected with 100 mL of Isovue 300. FINDINGS: LUNGS: The lungs are grossly clear, there is no concerning parenchymal mass or nodule identified. T here is no pleural effusion or pneumothorax seen. The tracheobronchial tree is patent. MEDIASTINUM: There are no greater than 1 cm hilar or mediastinal lymph nodes. No pericardial effusi on is seen. OTHER: Left axillary adenopathy is again identified. There is relative stability in size as the lymp h node on image 6 currently measures 2.0 cm in short axis and previously measured 2.1 cm. No new enla rged axillary lymph nodes are seen. Few nonenlarged retropectoral lymph nodes are stable. LIVER/GB: Hepatic parenchyma is diffusely hypoattenuated in comparison to that of the spleen, most co mmonly seen in hepatic steatosis. This finding limits evaluation for hepatic masses. No gross evidenc e of hepatic mass is seen. No intrahepatic biliary ductal dilatation. No cholelithiasis. PANCREAS: No significant abnormality is seen. No ductal dilatation. SPLEEN: No splenomegaly. The spleen currently measures 12.3 cm in craniocaudal dimension and previous ly measured 11.9. ADRENALS: No significant abnormality is seen. No nodule or thickening. KIDNEYS: There is a cortically based right renal cyst measuring 2.0 cm and 2 additional right renal l esions that are too small to accurately characterize on delayed image 42 and 31, similar to the prior of 08/09/2018. No hydronephrosis of either kidney. BOWEL: There is long segment thickening of the sigmoid colon and numerous diverticula. Lung segment t hickening may be partially related to incomplete distention or chronic diverticulosis. The colon over all is suboptimally evaluated as oral contrast does not extend into the colon. There is a fluid-fille d prominent terminal ileum that could relate to an incompetent ileocecal valve or ileus. GENITAL ORGANS: There are patulous inguinal rings bilaterally, right greater than left containing fat . Prostate appears nonenlarged. LYMPH NODES: The right lower quadrant lymph nodes have decreased in size from the prior with a partic ular lymph node on image 86 previously measuring 9 mm in short axis and now measuring 6 mm in short a xis. The previously seen prominent portacaval lymph node measures 1.4 cm in short axis on the prior a nd currently measures 1.4 as well. Scattered nonenlarged central mesenteric lymph nodes near the root of the mesentery and in the periaortic as well as the aortocaval region are again nonenlarged. A par ticular lymph node on image 68 on the prior and 67 on the current previously measured 7 mm in short a xis and is stable again measuring 7 mm. Right external chain iliac lymph node previously measured 1.0 cm in short axis and now measures 9 mm in short axis on image 108. Right superficial inguinal lymph nodes are again seen now measuring up to 1.0 cm in short axis and previously measuring up to 1.2 cm i n short axis. OSSEOUS STRUCTURES: Mild multilevel degenerative disc disease of the spine. Probable stable right fem oral head bone island and punctate right iliac bone islands. Degenerative changes of the sacroiliac j oints and hips are again seen. IMPRESSION: 1. Continued evidence of stable disease. Fluctuation of the size in short axis of the left axillary a denopathy, portal caval prominent lymph node, right external chain iliac lymph node and superficial i nguinal lymph nodes are all within 1-2 mm. No significant change. No new adenopathy in the chest, abd omen, or pelvis and no new splenomegaly. 2. Mild long segment thickening of the sigmoid colon may be on the basis of chronic diverticulosis. P rominence of the ileocecal valve and terminal ileum may be on the basis of incompetent ileocecal valv e, lipomatous hypertrophy of the ileocecal valve, ileus, or less likely cecal mass. Correlation with any recent colonoscopy for both of these findings is recommended.
== END | disposition home or self-care (01) ==
LOC: RADCTMAIN 16:03
PROVIDERS: ATTEND Internal Medicine Hematology & Oncology
DX: E11.9 Type 2 diabetes mellitus without complications (principal); I10 Essential (primary) hypertension; J45.998 Other asthma; C81.04 Nodular lymphocyte predominant Hodgkin lymphoma, lymph nodes of axilla and upper limb
CPT/HCPCS: 82565; 84520; 71260; 74177; 36415; Q9967

== ENCOUNTER 2020-01-12 13:21 | Emergency (ER) | payer BC ==
[2020-01-12 13:28] VITALS: BP 126/72; PULSE 62; RESP 20; TEMP 97.8
[2020-01-12] MEDS ORDERED: GLUCAGON 1 MG/ML VIAL IVP STA (13:29)
--- NOTE | 2020-01-12 13:53 | ED ---
General Adult HPI - General Chief complaint: Skin/Abscess/Foreign Body Stated complaint: Food stuck in throat Time Seen by Provider: 01/12/20 13:29 Source: patient, RN notes reviewed Mode of arrival: ambulatory Limitations: no limitations - History of Present Illness Initial comments: 49-year-old male presents emergency Department chief complaint of food stuck in his throat. Patient states that he is had this happen several times in the past but states he normally gets it unstuck. He states his been like this for last one hour. Patient states that he has no difficulty breathing. Patient denies any significant pain. - Related Data Home Medications Medication Instructions Recorded Confirmed Empagliflozin/Linagliptin 1 tab PO DAILY 11/22/16 01/11/19 [Glyxambi 25 mg-5 mg Tablet] Cetirizine HCl [Zyrtec] 10 mg PO DAILY 12/29/16 01/11/19 Lisinopril-Hctz 20-12.5 mg 1 tab PO DAILY 12/29/16 01/11/19 [Zestoretic 20-12.5] Sudafed(Dose Unknown) 1 tab PO BID 12/29/16 01/11/19 Magnesium 200 mg PO DAILY 05/18/17 01/11/19 Multivitamin [Men's Multi-Vitamin] 1 each PO DAILY 05/18/17 01/11/19 Ibuprofen (Unknown Dose) 1 tab PO DIRECTED 01/09/19 01/11/19 Omeprazole 20 mg PO BID 01/09/19 01/11/19 Allergies Allergy/AdvReac Type Severity Reaction Status Date / Time penicillin G Allergy Dyspnea Verified 01/12/20 13:28 Penicillins Allergy Rash/Hives Verified 01/12/20 13:28 Sulfa (Sulfonamide Allergy Rash/Hives Verified 01/12/20 13:28 Antibiotics) cephalexin [From Keflex] AdvReac Rash/Hives Verified 01/12/20 13:28 Review of Systems ROS Statement: Those systems with pertinent positive or pertinent negative responses have been documented in the HPI. ROS Other: All systems not noted in ROS Statement are negative. Past Medical History Past Medical History: Asthma, Cancer, Diabetes Mellitus, GERD/Reflux, Hypertension, Pneumonia, Sleep Apnea/CPAP/BIPAP Additional Past Medical History / Comment(s): Lymph node enlargement, Hodgkins lymphoma 2017. Hx childhood asthma, bronchitis, pneumonia. CPAP use. History of Any Multi-Drug Resistant Organisms: None Reported Past Surgical History: Orthopedic Surgery Additional Past Surgical History / Comment(s): Bilateral wrist carpal tunnel surgery, vasectomy, colonoscopy, lymph node biopsy, bone marrow biopsy. Past Anesthesia/Blood Transfusion Reactions: No Reported Reaction Past Psychological History: No Psychological Hx Reported Smoking Status: Former smoker Past Alcohol Use History: Rare Past Drug Use History: None Reported - Past Family History Father Family Medical History: Cancer Additional Family Medical History / Comment(s): Prostate cancer. General Exam Limitations: no limitations General appearance: alert, in no apparent distress Head exam: Present: atraumatic, normocephalic, normal inspection Eye exam: Present: normal appearance, PERRL, EOMI. Absent: scleral icterus, conjunctival injection, periorbital swelling ENT exam: Present: normal exam, normal oropharynx, mucous membranes moist Neck exam: Present: normal inspection, full ROM. Absent: tenderness, meningismus, lymphadenopathy Respiratory exam: Present: normal lung sounds bilaterally. Absent: respiratory distress, wheezes, rales, rhonchi, stridor Cardiovascular Exam: Present: regular rate, normal rhythm, normal heart sounds. Absent: systolic murmur, diastolic murmur, rubs, gallop, clicks GI/Abdominal exam: Present: soft, normal bowel sounds. Absent: distended, tenderness, guarding, rebound, rigid Course Vital Signs 01/12/20 13:25 Temperature 97.8 F Pulse Rate 62 Respiratory 20 Rate Blood Pressure 126/72 O2 Sat by Pulse 99 Oximetry Medical Decision Making - Medical Decision Making Patient was given glucagon, patient included relief of symptoms he is tolerating his own secretions, tolerating oral intake. Patient will follow-up with GI for possible EGD as his happened several times in the past. Disposition Clinical Impression: Esophageal obstruction due to food impaction Disposition: HOME SELF-CARE Condition: Stable Instructions (If sedation given, give patient instructions): Esophageal Foreign Body (ED) Additional Instructions: Please return to the Emergency Department if symptoms worsen or any other concerns. Is patient prescribed a controlled substance at d/c from ED?: No Referrals: Fuentes Hendricks MD [Primary Care Provider] - 1-2 days Omar Gallo MD [STAFF PHYSICIAN] - 1-2 days Time of Disposition: 13:52
== END 2020-01-12 13:57 | disposition home or self-care (01) ==
LOC: EC 13:21
DX: T18.128A Food in esophagus causing other injury, initial encounter (principal); E11.9 Type 2 diabetes mellitus without complications; I10 Essential (primary) hypertension; J45.909 Unspecified asthma, uncomplicated; K21.9 Gastro-esophageal reflux disease without esophagitis; G47.30 Sleep apnea, unspecified; Z79.84 Long term (current) use of oral hypoglycemic drugs; Z79.1 Long term (current) use of non-steroidal anti-inflammatories (NSAID); Z79.899 Other long term (current) drug therapy; Z88.0 Allergy status to penicillin; Z88.2 Allergy status to sulfonamides; Z88.1 Allergy status to other antibiotic agents; Z85.71 Personal history of Hodgkin lymphoma; Z99.89 Dependence on other enabling machines and devices; Z87.891 Personal history of nicotine dependence; X58.XXXA Exposure to other specified factors, initial encounter
CPT/HCPCS: 96374; 99283; J1610

== ENCOUNTER 2020-08-26 07:29 | Day surgery (SDC) | payer BC ==
[2020-08-24 08:29] VITALS: BMI 37.4
[~2020-08-26 07:29] MED LIST changes: +LIDOCAINE 1% (10MG/ML) FOR IV START INTRADERMA PRN
[2020-08-26 08:05] LABS: Glucose,Whole Blood 154 mg/dL (75-99)
[2020-08-26 08:08] VITALS: RESP 16; TEMP 97.3
[2020-08-26] MEDS ORDERED: LIDOCAINE 1% (10MG/ML) FOR IV START INTRADERMA ONE (08:08)
[2020-08-26] MEDS ORDERED: PROPOFOL 10 MG/ML 20 ML VIAL IV ONE (08:23)
--- NOTE | 2020-08-26 08:39 | P.PCN ---
Date of Procedure: 08/26/20 Procedure(s) Performed: BRIEF HISTORY: Patient is a 50-year-old, pleasant, white male scheduled for an upper endoscopy as a part of evaluation of intermittent dysphagia to solids for the last 10 years duration. He has the symptoms once every 3-4 months. the last 2 or 3 episodes he went to the emergency room and was given glucagon and symptoms resolved.. He is hence scheduled for an upper endoscopy with possible dilation. PROCEDURE PERFORMED: Esophagogastroduodenoscopy with balloon dilation. PREOPERATIVE DIAGNOSIS: Intermittent dysphagia to solids for several years duration. IV sedation per anesthesia. PROCEDURE: After informed consent was obtained, the patient was brought into the endoscopy unit. IV sedation was administered by Anesthesia under continuous monitoring. Initially the Olympus GIF-140 video endoscope was inserted into the mouth. Esophagus intubated without any difficulty. It was gradually advanced into the stomach and duodenum and carefully examined. The bulb and the second part of the duodenum appeared normal. The scope at this time was withdrawn to the stomach, adequately insufflated with air, and upon careful examination, mucosa of the antrum, body, cardia and the fundus appeared normal. The scope was then withdrawn into the esophagus. The GE junction was located at 44 cm from the incisors. A small sliding Hiatal hernia noted. There was a distal esophageal whitish patent Schatzki's ring identified at the GE junction and just proximal to the mucosal ring identified. At this time using 15-18 mm TTS balloon as we dilated in a sequential fashion for 90 seconds. Following this there was some oozing and mucosal tear noted and hence further dilation was not performed. The rest of the esophagus appeared normal. There were no erosions or ulcerations seen and the patient tolerated the procedure well. IMPRESSION: 1. Distal esophageal Schatzki's ring status post balloon dilation using 15-18 mm TTS balloon as described above. 2. Small Hiatal hernia. RECOMMENDATIONS: The findings of this examination were discussed with the patient as well as his family.. He will remain on a clear liquid diet for lunch today. He will continue with omeprazole 20 mg daily and follow antireflux measures. He was advised to follow with the office if he has recurrent dysphagia.
[2020-08-26 09:52] VITALS: BP 120/76; PULSE 70
== END 2020-08-26 09:11 | disposition home or self-care (01) ==
LOC: ORWHC2ENDO 07:29
PROVIDERS: ATTEND Internal Medicine Gastroenterology
DX: K22.2 Esophageal obstruction (principal); K44.9 Diaphragmatic hernia without obstruction or gangrene; I10 Essential (primary) hypertension; E11.9 Type 2 diabetes mellitus without complications; Z98.890 Other specified postprocedural states; Z79.84 Long term (current) use of oral hypoglycemic drugs; Z79.1 Long term (current) use of non-steroidal anti-inflammatories (NSAID); Z79.899 Other long term (current) drug therapy; Z88.0 Allergy status to penicillin; Z88.2 Allergy status to sulfonamides; Z91.040 Latex allergy status
CPT/HCPCS: 43249; J2704; C1726

== ENCOUNTER → 2020-09-14 | Outpatient (CLI) | payer BC ==
[2020-09-14 17:18] LABS: African American GFR (CKD) >90 (>60 ml/min/1.73 sqM); Blood Urea Nitrogen 10 mg/dL (9-20); Non-African American GFR(CKD) >90 (>60 ml/min/1.73 sqM)
--- NOTE | 2020-09-14 20:39 | CT ---
EXAMINATION TYPE: CT ChestAbdPelvis w con DATE OF EXAM: 09/14/2020 COMPARISON: 09/16/2019 and 08/09/2018 HISTORY: 50-year-old male C81.04, Follow up for lymphoma. TECHNIQUE: Contiguous axial scanning of the chest, abdomen, and pelvis performed with IV Contrast, pa tient injected with 100ml mL of Isovue 300. Delayed images through the kidneys were obtained. Coronal /sagittal reconstructions performed. CT DLP: 2436.5 mGycm Automated exposure control for dose reduction was used. FINDINGS: CHEST: Heart normal size without pericardial effusion. Aorta normal caliber with conventional arch vessel branching anatomy. Stable enlarged left axillary lymph node at 2.1 cm and smaller subpectoral lymph nodes on the left. N o additional thoracic lymphadenopathy identified. Lungs show no consolidation or pleural effusion. ABDOMEN: Liver enlarged at 20.1 cm. There may be mild fatty infiltration. Portal venous system is patent. No b iliary duct dilatation. Gallbladder is nondistended and shows a phrygian cap. Adrenal glands, left kidney, and pancreas appear within normal limits. Spleen remains upper limits of normal in size at 13.3 cm. Cortical cysts redemonstrated within the right kidney measuring up to 1.6 cm. Ghassan hepatic lymph node measures 2.0 cm versus 1.8 cm, previously. Aortocaval lymph node measures 1.3 cm versus 1.1 cm, previously. Additional numerous nonenlarged retr operitoneal lymph nodes relatively unchanged. Numerous mesenteric lymph nodes are redemonstrated. Many are stable. There is no greater degree of th ickening measuring up to 1.4 cm in the right paramedian mid abdomen versus 1.2 cm on 09/16/2019 and c learly larger as compared to 08/09/2018. For some manufacturer's representative lymph nodes, refer to axial images 85 through 92. No dilated small bowel, free fluid, or free air. Normal appendix. Mild stool burden. No pericolonic inflammatory change. PELVIS: Relatively stable 1 cm right external iliac chain lymph node. No definite progressive pelvic lymphade nopathy. Bladder is collapsed. No abnormal fluid collection in the pelvis or evidence of enlarging pelvic lymp hadenopathy. Left-sided pelvic phlebolith. 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 Mild degenerative change at the hips. Degenerative disc disease and endplate changes particularly at L2-L3. No osseous destructive process. IMPRESSION: 1. MESENTERIC LYMPH NODES PARTICULARLY IN THE RIGHT SIDE OF THE ABDOMEN SHOW VERY SUBTLE GRADUAL INCR EASE by 2 to 3 mm as compared to 2019 but with clear enlargement as compared to 2018. Very indolent d isease and slow gradual progression is suggested. Lymph nodes on the right measure up to 1.4 cm short axis, currently. Similarly, an aortocaval lymph node (currently 1.3 cm) and ghassan hepatic lymph node (currently 2.0 cm) have also increased in size by a couple millimeters. 2. Other lymph nodes such as in the left axilla (2.1 cm) and scattered nonenlarged nodes within the r ight external iliac chain and retroperitoneum remain stable.
== END | disposition home or self-care (01) ==
LOC: RADCTMAIN 16:30
PROVIDERS: ATTEND Internal Medicine Hematology & Oncology
DX: R59.0 Localized enlarged lymph nodes (principal); C81.04 Nodular lymphocyte predominant Hodgkin lymphoma, lymph nodes of axilla and upper limb
CPT/HCPCS: 82565; 84520; 71260; 74177; 36415; Q9967

== ENCOUNTER 2020-10-30 09:24 | Emergency (ER) | payer BC ==
[2020-10-30 09:31] VITALS: RESP 18; TEMP 97.8
[2020-10-30] MEDS ORDERED: FUROSEMIDE 10 MG/ML 4 ML VIAL IV SCH ×2 (09:45)
--- NOTE | 2020-10-30 10:00 | ED ---
General Adult HPI - General Chief complaint: Neuro Symptoms/Deficit Stated complaint: CVA Symptoms Time Seen by Provider: 10/30/20 09:25 Source: patient, family, RN notes reviewed, old records reviewed Mode of arrival: ambulatory Limitations: no limitations - History of Present Illness Initial comments: This is a 50-year-old male who presents to the emergency department stating that yesterday he felt like his tongue had a coating on it however when he went to bed last night he had no facial droop or numbness on the face. Patient states this morning at 7:30 he noticed some facial droop on the left with a little bit of decreased sensation on the left side of his face. Patient denies any recent fever chills or cough. Patient denies similar symptoms in the past. Patient denies any history of his hands or legs. Patient denies any decreased sensation of hands or legs. Patient denies any visual disturbance. Patient denies headache. Patient denies any chest pain difficulty breathing or shortness of breath per patient denies abdominal pain. - Related Data Home Medications Medication Instructions Recorded Confirmed Cetirizine HCl [Zyrtec] 10 mg PO DAILY PRN 12/29/16 10/30/20 Lisinopril-Hctz 20-12.5 mg 1 tab PO QAM 12/29/16 10/30/20 [Zestoretic 20-12.5] Magnesium 200 mg PO DAILY 05/18/17 10/30/20 Multivitamin [Men's Multi-Vitamin] 1 each PO DAILY 05/18/17 10/30/20 Omeprazole 40 mg PO QAM 01/09/19 10/30/20 Cholecalciferol [Vitamin D3 (25 1,000 unit PO DAILY 08/24/20 10/30/20 Mcg = 1000 Iu)] Empagliflozin [Jardiance] 25 mg PO QAM 08/24/20 10/30/20 Naproxen Sodium [Aleve] 220 mg PO BID PRN 08/24/20 10/30/20 sitaGLIPtin PHOSPHATE [Januvia] 100 mg PO DAILY 08/24/20 10/30/20 Ascorbic Acid [Vitamin C] 1,000 mg PO DAILY 10/30/20 10/30/20 Pseudoephedrine 12Hr [Sudafed 12Hr] 120 mg PO Q12H PRN 10/30/20 10/30/20 diphenhydrAMINE HCL [Benadryl] 50 mg PO DAILY PRN 10/30/20 10/30/20 Previous Rx's Medication Instructions Recorded predniSONE [Deltasone] 30 mg PO BID #30 tab 10/30/20 valACYclovir HCL 1,000 mg PO TID #30 tab 10/30/20 Allergies Allergy/AdvReac Type Severity Reaction Status Date / Time penicillin G Allergy Dyspnea Verified 10/30/20 10:24 Penicillins Allergy Rash/Hives, Verified 10/30/20 10:24 dyspnea Sulfa (Sulfonamide Allergy Rash/Hives Verified 10/30/20 10:24 Antibiotics) cephalexin [From Keflex] AdvReac Rash/Hives Verified 10/30/20 10:24 Review of Systems ROS Statement: Those systems with pertinent positive or pertinent negative responses have been documented in the HPI. ROS Other: All systems not noted in ROS Statement are negative. Past Medical History Past Medical History: Asthma, Cancer, Diabetes Mellitus, GERD/Reflux, Hypertension, Pneumonia, Sleep Apnea/CPAP/BIPAP Additional Past Medical History / Comment(s): Lymph node enlargement, Hodgkins lymphoma 2017-chemo and radiation left axilla 2017. Hx childhood asthma, bronchitis, pneumonia. CPAP use. History of Any Multi-Drug Resistant Organisms: None Reported Past Surgical History: Orthopedic Surgery Additional Past Surgical History / Comment(s): Bilateral wrist carpal tunnel surgery, vasectomy, colonoscopy, lymph node biopsy, bone marrow biopsy. Past Anesthesia/Blood Transfusion Reactions: No Reported Reaction Additional Past Anesthesia/Blood Transfusion Reaction / Comment(s): muscle aches post general anesthesia for a day Past Psychological History: No Psychological Hx Reported Smoking Status: Former smoker - Past Family History Father Family Medical History: Cancer Additional Family Medical History / Comment(s): Prostate cancer. General Exam - General Exam Comments Initial Comments: GENERAL: Patient is well-developed and well-nourished. Patient is nontoxic and well- hydrated and is in mild distress. ENT: Neck is soft and supple. No significant lymphadenopathy is noted. Oropharynx is clear. Moist mucous membranes. Neck has full range of motion without eliciting any pain. EYES: The sclera were anicteric and conjunctiva were pink and moist. Extraocular movements were intact and pupils were equal round and reactive to light. Eyelids were unremarkable. PULMONARY: Unlabored respirations. Good breath sounds bilaterally. No audible rales rhonchi or wheezing was noted. CARDIOVASCULAR: There is a regular rate and rhythm without any murmurs gallops or rubs. ABDOMEN: Soft and nontender with normal bowel sounds. SKIN: Skin is clear with no lesions or rashes and otherwise unremarkable. NEUROLOGIC: Patient is alert and oriented x3. Patient has some slight facial droop on the left side and altered sensation in the left cheek. Patient also has slight decreased forehead wrinkling on the left side. Normal speech, volume and content. Symmetrical smile. MUSCULOSKELETAL: Normal extremities with adequate strength and full range of motion. LYMPHATICS: No significant lymphadenopathy is noted PSYCHIATRIC: Normal psychiatric evaluation. Limitations: no limitations Course Vital Signs 10/30/20 09:25 Temperature 97.8 F Pulse Rate 78 Respiratory 18 Rate Blood Pressure 179/82 O2 Sat by Pulse 98 Oximetry Medical Decision Making - Medical Decision Making EKG shows a normal sinus rhythm at 73 bpm HI interval 150 QRS 104 QT interval 364 QTC is 401. Patient's EKG shows no ST segment elevation or depression. CT of the brain shows no acute normalities. CT of the head neck shows no acute abnormality. Dr. 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 Patient was given a prescription for else clear and prednisone. - Lab Data Result diagrams: 10/30/20 09:57 10/30/20 09:57 Lab Results 10/30/20 10/30/20 10/30/20 Range/Units 09:57 09:57 09:57 WBC 5.5 (3.8-10.6) k/uL RBC 6.06 H (4.30-5.90) m/uL Hgb 18.0 H (13.0-17.5) gm/dL Hct 52.9 (39.0-53.0) % MCV 87.3 (80.0-100.0) fL MCH 29.7 (25.0-35.0) pg MCHC 34.1 (31.0-37.0) g/dL RDW 12.5 (11.5-15.5) % Plt Count 179 (150-450) k/uL MPV 7.2 Neutrophils % 57 % Lymphocytes % 19 % Monocytes % 13 % Eosinophils % 6 % Basophils % 1 % Neutrophils # 3.2 (1.3-7.7) k/uL Lymphocytes # 1.0 (1.0-4.8) k/uL Monocytes # 0.7 (0-1.0) k/uL Eosinophils # 0.3 (0-0.7) k/uL Basophils # 0.1 (0-0.2) k/uL PT 10.2 (9.0-12.0) sec INR 1.0 (<1.2) APTT 24.3 (22.0-30.0) sec Sodium 136 L (137-145) mmol/L Potassium 4.3 (3.5-5.1) mmol/L Chloride 101 (98-107) mmol/L Carbon Dioxide 25 (22-30) mmol/L Anion Gap 10 mmol/L BUN 14 (9-20) mg/dL Creatinine 0.90 (0.66-1.25) mg/dL Est GFR (CKD-EPI)AfAm >90 (>60 ml/min/1.73 sqM) Est GFR (CKD-EPI)NonAf >90 (>60 ml/min/1.73 sqM) Glucose 189 H (74-99) mg/dL Calcium 9.7 (8.4-10.2) mg/dL Total Bilirubin 0.5 (0.2-1.3) mg/dL AST 27 (17-59) U/L ALT 40 (4-49) U/L Alkaline Phosphatase 74 (38-126) U/L Troponin I (0.000-0.034) ng/mL Total Protein 7.0 (6.3-8.2) g/dL Albumin 4.5 (3.5-5.0) g/dL 10/30/20 Range/Units 09:57 WBC (3.8-10.6) k/uL RBC (4.30-5.90) m/uL Hgb (13.0-17.5) gm/dL Hct (39.0-53.0) % MCV (80.0-100.0) fL MCH (25.0-35.0) pg MCHC (31.0-37.0) g/dL RDW (11.5-15.5) % Plt Count (150-450) k/uL MPV Neutrophils % % Lymphocytes % % Monocytes % % Eosinophils % % Basophils % % Neutrophils # (1.3-7.7) k/uL Lymphocytes # (1.0-4.8) k/uL Monocytes # (0-1.0) k/uL Eosinophils # (0-0.7) k/uL Basophils # (0-0.2) k/uL PT (9.0-12.0) sec INR (<1.2) APTT (22.0-30.0) sec Sodium (137-145) mmol/L Potassium (3.5-5.1) mmol/L Chloride (98-107) mmol/L Carbon Dioxide (22-30) mmol/L Anion Gap mmol/L BUN (9-20) mg/dL Creatinine (0.66-1.25) mg/dL Est GFR (CKD-EPI)AfAm (>60 ml/min/1.73 sqM) Est GFR (CKD-EPI)NonAf (>60 ml/min/1.73 sqM) Glucose (74-99) mg/dL Calcium (8.4-10.2) mg/dL Total Bilirubin (0.2-1.3) mg/dL AST (17-59) U/L ALT (4-49) U/L Alkaline Phosphatase (38-126) U/L Troponin I <0.012 (0.000-0.034) ng/mL Total Protein (6.3-8.2) g/dL Albumin (3.5-5.0) g/dL Disposition Clinical Impression: Torres's palsy Disposition: HOME SELF-CARE Condition: Good Instructions (If sedation given, give patient instructions): Torres Palsy (ED) Prescriptions: predniSONE [Deltasone] 30 mg PO BID #30 tab valACYclovir HCL 1,000 mg PO TID #30 tab Is patient prescribed a controlled substance at d/c from ED?: No Referrals: Fuentes Hendricks MD [Primary Care Provider] - 1-2 days Time of Disposition: 13:58
[2020-10-30 10:06] LABS: Basophils # (A) 0.1 k/uL (0-0.2); Basophils % (A) 1 %; Eosinophils # (A) 0.3 k/uL (0-0.7); Eosinophils % (A) 6 %; HCT 52.9 % (39.0-53.0); Lymphocytes % (A) 19 %; MCH 29.7 pg (25.0-35.0); MCHC 34.1 g/dL (31.0-37.0); MCV 87.3 fL (80.0-100.0); Mean Platelet Volume 7.2; Monocytes # (A) 0.7 k/uL (0-1.0); Monocytes % (A) 13 %; Neutrophils # (A) 3.2 k/uL (1.3-7.7); Neutrophils % (A) 57 %; Platelet Count 179 k/uL (150-450); RBC 6.06 m/uL (4.30-5.90); RDW 12.5 % (11.5-15.5); WBC 5.5 k/uL (3.8-10.6)
[2020-10-30 10:16] LABS: Partial Thromboplastin Time 24.3 sec (22.0-30.0); Prothrombin Time 10.2 sec (9.0-12.0)
[2020-10-30 10:17] LABS: ALT 40 U/L (4-49); AST 27 U/L (17-59); African American GFR (CKD) >90 (>60 ml/min/1.73 sqM); Albumin 4.5 g/dL (3.5-5.0); Alkaline Phosphatase 74 U/L (38-126); Anion Gap 10 mmol/L; Blood Urea Nitrogen 14 mg/dL (9-20); Calcium 9.7 mg/dL (8.4-10.2); Carbon Dioxide 25 mmol/L (22-30); Chloride 101 mmol/L (98-107); Glucose 189 mg/dL (74-99); Non-African American GFR(CKD) >90 (>60 ml/min/1.73 sqM); Potassium 4.3 mmol/L (3.5-5.1); Sodium 136 mmol/L (137-145); Total Bilirubin 0.5 mg/dL (0.2-1.3)
--- NOTE | 2020-10-30 10:51 | CT ---
EXAM: CT Head Without Intravenous Contrast CLINICAL HISTORY: Reason: Neuro deficit, acute, stroke suspected TECHNIQUE: Axial computed tomography images of the head/brain without intravenous contrast. CTDI is 49.27 mGy and DLP is 1079.4 mGy-cm. This CT exam was performed using one or more of the following dose reduction techniques: automated exposure control, adjustment of the mA and/or kV according to patient size, and/or use of iterative reconstruction technique. COMPARISON: No relevant prior studies available. FINDINGS: Brain: Unremarkable. No hemorrhage. No significant white matter disease. No edema. Ventricles: Unremarkable. No ventriculomegaly. Bones/joints: Unremarkable. No acute fracture. Soft tissues: Unremarkable. Sinuses: Unremarkable as visualized. No acute sinusitis. Mastoid air cells: Unremarkable as visualized. No mastoid effusion. IMPRESSION: No evidence of acute intracranial abnormality.
--- NOTE | 2020-10-30 10:52 | XR ---
EXAM: XR Chest, 2 Views CLINICAL HISTORY: Reason: altered mental status TECHNIQUE: Frontal and lateral views of the chest. COMPARISON: No relevant prior studies available. FINDINGS: Lungs: Normal lung volumes. No airspace consolidation. No pulmonary edema. Pleural space: Unremarkable. No pneumothorax. No significant pleural effusions. Heart: Unremarkable. No cardiomegaly. Mediastinum: Unremarkable. No mediastinal widening or shift. Bones/joints: No acute osseous abnormality. IMPRESSION: No evidence of acute cardiopulmonary abnormality.
[2020-10-30] MEDS ORDERED: NITROGLYCERIN OINT 1 INCH/GM PACKET TOPICAL SCH (13:00)
[2020-10-30] MEDS ORDERED: predniSONE 20 MG TAB PO STA (14:01)
[2020-10-30] MEDS ORDERED: valACYclovir HCL 1,000 MG TABLET PO STA (14:02)
--- NOTE | 2020-10-30 14:31 | P.CNNES ---
History of Present Illness Consult date: 10/30/20 Requesting physician: Bari Gan Reason for Consult: Left facial weekness concern for [place] Palsy History of Present Illness: This is a 50-year-old gentleman with medical history of Hodgkins Lymphoma over the left axillary area status post the chemotherapy in 2017 as well as radiation (2017), diabetes per last for 5 years, hypertension for more than 20 years, sleep apnea on CPAP, bilateral carpal tunnel syndrome, ex tobacco use that presented to the emergency department on 10/30/2020 because of the left facial weakness and numbness. The patient stated that today around 7:30 at 8:00 in the morning he noticed that the his left side face from the left chin area all the way down just below the left eye was numb and weak. He initially it started with the left tongue lip region. Prior to that he stated that the he did not have any complaints. He also felt like his left eyes blurry. He denies any worsening of the his hearing loss. Denies any focal deficits at. Denies any numbness or weakness of upper or lower extremities. He stated that he does have numbness in the first 3 fingers of bilateral hands but that sac chronic and that he has carpal tunnel syndrome. He stated that the 2 days ago he had left neck pain but without any radiation or weakness or numbness he also had a neck pain within the last 2 weeks prior to these 2 days ago that resolved. Patient follows-up with Dr. Sanchez (Oncologist) who continues to follow up with him and he was notified by his oncologist that he had possible to enlarged lymph nodes in his chest on the current study that he had. He was told that he is in [facility]. He does have some mild hearing loss because of his job but nothing going worse than the normal. She denies any cough, fever. He stated that the he hasn't been outside [place] the[place] tics there Patient denied being on aspirin, Plavix or any other antiplatelets at. He is not on any statin. He denies any history of atrial fibrillation. Workup in the hospital consisted of: CT of the head is reported as no evidence of acute intracranial abnormality. There is no imaging that I can see because of system is down. EKG was reported as normal sinus rhythm. Inferior infarct, age undetermined. Abnormal EKG. Glucose is 189. Review of Systems Review of system: The 12 point system was reviewed and apparent positive and negative per HPI. Past Medical History Past Medical History: Asthma, Cancer, Diabetes Mellitus, GERD/Reflux, Hypertension, Pneumonia, Sleep Apnea/CPAP/BIPAP Additional Past Medical History / Comment(s): Lymph node enlargement, Hodgkins lymphoma 2017-chemo and radiation left axilla 2017. Hx childhood asthma, b ronchitis, pneumonia. CPAP use. History of Any Multi-Drug Resistant Organisms: None Reported Past Surgical History: Orthopedic Surgery Additional Past Surgical History / Comment(s): Bilateral wrist carpal tunnel surgery, vasectomy, colonoscopy, lymph node biopsy, bone marrow biopsy. Past Anesthesia/Blood Transfusion Reactions: No Reported Reaction Additional Past Anesthesia/Blood Transfusion Reaction / Comment(s): muscle aches post general anesthesia for a day Past Psychological History: No Psychological Hx Reported Smoking Status: Former smoker - Past Family History Father Family Medical History: Cancer Additional Family Medical History / Comment(s): Prostate cancer. Medications and Allergies Home Medications Medication Instructions Recorded Confirmed Type Cetirizine HCl [Zyrtec] 10 mg PO DAILY PRN 12/29/16 10/30/20 History Lisinopril-Hctz 20-12.5 mg 1 tab PO QAM 12/29/16 10/30/20 History [Zestoretic 20-12.5] Magnesium 200 mg PO DAILY 05/18/17 10/30/20 History Multivitamin [Men's Multi-Vitamin] 1 each PO DAILY 05/18/17 10/30/20 History Omeprazole 40 mg PO QAM 01/09/19 10/30/20 History Cholecalciferol [Vitamin D3 (25 1,000 unit PO DAILY 08/24/20 10/30/20 History Mcg = 1000 Iu)] Empagliflozin [Jardiance] 25 mg PO QAM 08/24/20 10/30/20 History Naproxen Sodium [Aleve] 220 mg PO BID PRN 08/24/20 10/30/20 History sitaGLIPtin PHOSPHATE [Januvia] 100 mg PO DAILY 08/24/20 10/30/20 History Ascorbic Acid [Vitamin C] 1,000 mg PO DAILY 10/30/20 10/30/20 History Pseudoephedrine 12Hr [Sudafed 12Hr] 120 mg PO Q12H PRN 10/30/20 10/30/20 History diphenhydrAMINE HCL [Benadryl] 50 mg PO DAILY PRN 10/30/20 10/30/20 History predniSONE [Deltasone] 30 mg PO BID #30 tab 10/30/20 Rx valACYclovir HCL 1,000 mg PO TID #30 tab 10/30/20 Rx Allergies Allergy/AdvReac Type Severity Reaction Status Date / Time penicillin G Allergy Dyspnea Verified 10/30/20 10:24 Penicillins Allergy Rash/Hives, Verified 10/30/20 10:24 dyspnea Sulfa (Sulfonamide Allergy Rash/Hives Verified 10/30/20 10:24 Antibiotics) cephalexin [From Keflex] AdvReac Rash/Hives Verified 10/30/20 10:24 Physical Examination - Vital Signs Vital Signs: Vital Signs Temp Pulse Resp BP Pulse Ox 10/30/20 09:25 97.8 F 78 18 179/82 98 Intake and Output 10/29/20 10/30/20 10/30/20 22:59 06:59 14:59 Other: Weight 124.738 kg GENERAL: The patient is lying in bed and is not in acute distress. CHEST: The heart rate is regular rate rhythm. No murmurs to auscultation. LUNG: Clear to auscultation bilaterally no wheezing noted throughout. Not labored breathing. ABDOMEN/GI: Bowel sounds present in all 4 quadrants. No tenderness to palpation throughout. NEUROLOGICAL: Higher mental function: The patient is awake, alert, oriented to self, place and time. Patient is following commands. No aphasia and no neglect. Cranial nerves: The pupils are round, equal and reactive to light and accommo dation. Visual [place] are full to confrontation throughout. Extraocular movement is intact no nystagmus is noted. Facial sensation is normal to touch throughout. There is mild left upper and lower facial weakness. Hearing is normal bilaterally to hand rub. Tongue is midline and moved [id number] without any difficulty. No dysarthria is noted. Shoulder shrug is normal bilaterally. Motor: Gait is normal with normal arm swing. The strength is 5 over 5 throughout. Normal tone and bulk. Cerebellum: Normal finger to nose heel to chin bilaterally. Sensation: Sensation is normal to touch throughout. Reflexes (right/left): 2+ throughout except ankles are 1+ bilaterally. Plantars are downgoing bilaterally. Results Coagulation study: PT is 10.2, INR is 1.0, PTT of 24.3. - Laboratory Findings CBC and BMP: 10/30/20 09:57 10/30/20 09:57 Abnormal Lab Findings: Abnormal Labs 10/30/20 10/30/20 09:57 09:57 RBC 6.06 H Hgb 18.0 H Sodium 136 L Glucose 189 H Assessment and Plan Assessment: This is a 50-year-old gentleman that presents emergency department with the left facial weakness as well as numbness from the lower eye all way down to left jaw today at around 7:30-8am. He does have history of Hodgkin's lymphoma over the left axillary and was told he has to enlarged lymph nodes recently by his oncologist. Otherwise he has no other neurological deficit. Left Torres's palsy: Unknown exact etiology. One of the consideration is a metastasis from the Hodgkin's lymphoma. This also could be of viral Hodgkin lymphoma (left axillary) that is post chemotherapy and radiation in 2017 and was told he had possible to enlarged lymph nodes in the chest recently Diabetes mellitus Hypertension Sleep apnea on CPAP Bilateral Carpal tunnel X tobacco use last cigarette was about 10-15 years ago. Plan: I notified the patient that he is seems that he has Torres's palsy and one of the possibilities is a Hodgkin's lymphoma and that I wanted that to get MRI of the brain as well cervical with and without gadolinium to rule out any metastasis. 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 He was notified that it could be done tomorrow but might he might have to states on Monday. He decided that he was to get as an outpatient. We'll get a CT of the head and neck to make sure there is no clot which I doubt this is a stroke. Because of his travel to [facility] and there is takes cannot exclude Lyme disease so the patient needs to have the thorough workup as an outpatient as well as possibly exclude Lyme. He was notified to follow up with his oncologist as well as a neurologist within a week The patient stated that if the CT of the head and neck does not show any clots the he would like to go home. Therefore we'll discharge the patient on the prednisone 60 mg for 5 days and after 5 days. Then tapering 10mg daily (50 mg next day, then 40mg following day, then 30mg day after that until last 10mg). We will also will discharge the patient on valacyclovir 1 g one tablet 3 times a day for 7 days. He needs an eye patch as well as eyedrops lubricants over the left eye to avoid any corneal ulceration. The plan was discussed with the patient as well as the ED attending. Thank you for the consultation. Kermit Mittal MD Neuro-hospitalist. Time with Patient: Greater than 30
--- NOTE | 2020-10-30 15:23 | CT ---
EXAM: CT Angiography Head With Intravenous Contrast CLINICAL HISTORY: ITS.REASON CT Reason: Facial droop TECHNIQUE: Axial computed tomographic angiography images of the head with intravenous contrast. CTDI is 16.9 mGy and DLP is 771.9 mGy-cm. This CT exam was performed using one or more of the following dose reduction techniques: automated exposure control, adjustment of the mA and/or kV according to patient size, and/or use of iterative reconstruction technique. 3D and MIP reconstructed images were created and reviewed. COMPARISON: None FINDINGS: Right internal carotid artery: No acute findings. Intracranial segment is patent with no significant stenosis. No aneurysm. Right anterior cerebral artery: Unremarkable. No occlusion or significant stenosis. No aneurysm. Right middle cerebral artery: Unremarkable. No occlusion or significant stenosis. No aneurysm. Right posterior cerebral artery: Unremarkable. No occlusion or significant stenosis. No aneurysm. Right vertebral artery: The right vertebral artery likely terminates as the right PICA. Left internal carotid artery: No acute findings. Intracranial segment is patent with no significant stenosis. No aneurysm. Left anterior cerebral artery: Unremarkable. No occlusion or significant stenosis. No aneurysm. Left middle cerebral artery: Unremarkable. No occlusion or significant stenosis. No aneurysm. Left posterior cerebral artery: Unremarkable. No occlusion or significant stenosis. No aneurysm. Left vertebral artery: Atherosclerotic calcifications in the V4 segment of the left vertebral artery. Basilar artery: Unremarkable. No occlusion or significant stenosis. No aneurysm. IMPRESSION: No significant stenosis, occlusion, or aneurysm in the central or large intracranial vessels. EXAM: CT Angiography Neck With Intravenous Contrast CLINICAL HISTORY: ITS.REASON CT Reason: Facial droop TECHNIQUE: Axial computed tomographic angiography images of the neck with intravenous contrast. CTDI is 16.9 mGy and DLP is 771.9 mGy-cm. This CT exam was performed using one or more of the following dose reduction techniques: automated exposure control, adjustment of the mA and/or kV according to patient size, and/or use of iterative reconstruction technique. 3D and MIP reconstructed images were created and reviewed. COMPARISON: None FINDINGS: VASCULATURE: Right common carotid artery: Unremarkable. No significant stenosis. No dissection or occlusion. Right internal carotid artery: Unremarkable. Extracranial segment is patent with no significant stenosis. No dissection or occlusion. Right external carotid artery: Unremarkable. No occlusion. Right vertebral artery: Unremarkable. No significant stenosis. No dissection or occlusion. Left common carotid artery: Unremarkable. No significant stenosis. No dissection or occlusion. Left internal carotid artery: Unremarkable. Extracranial segment is patent with no significant stenosis. No dissection or occlusion. Left external carotid artery: Unremarkable. No occlusion. Left vertebral artery: Dominant left vertebral artery. No significant stenosis. No dissection or occlusion. NECK: Bones/joints: Straightening of the normal cervical lordosis. Degenerative changes of the spine. No acute fracture. No dislocation. Soft tissues: Unremarkable as visualized. No mass. CAROTID STENOSIS REFERENCE USING NASCET CRITERIA: % ICA stenosis = (1 - narrowest ICA diameter/diameter of distal cervical ICA) x 100. Mild - <50% stenosis. Moderate - 50-69% stenosis. Severe - 70-94% stenosis. Near occlusion - 95-99% stenosis. Occluded - 100% stenosis. IMPRESSION: No significant stenosis, occlusion, or dissection.
[2020-10-30 15:46] VITALS: BP 130/68; PULSE 69
== END 2020-10-30 15:45 | disposition home or self-care (01) ==
LOC: EC 09:24
DX: G51.0 Bell's palsy (principal); E11.9 Type 2 diabetes mellitus without complications; K21.9 Gastro-esophageal reflux disease without esophagitis; I10 Essential (primary) hypertension; G47.33 Obstructive sleep apnea (adult) (pediatric); Z79.84 Long term (current) use of oral hypoglycemic drugs; Z79.899 Other long term (current) drug therapy; Z88.0 Allergy status to penicillin; Z88.1 Allergy status to other antibiotic agents; Z88.2 Allergy status to sulfonamides; Z99.89 Dependence on other enabling machines and devices; Z87.891 Personal history of nicotine dependence; Z98.52 Vasectomy status; Z85.71 Personal history of Hodgkin lymphoma; Z92.21 Personal history of antineoplastic chemotherapy; Z92.3 Personal history of irradiation; Z80.42 Family history of malignant neoplasm of prostate
CPT/HCPCS: 36415; 93005; 80053; 84484; 85025; 85610; 85730; 71046; 70496; 70450; 70498; 99285; J7512; Q9967

== ENCOUNTER → 2020-11-24 | Outpatient (CLI) | payer BC ==
--- NOTE | 2020-11-24 10:48 | EST ---
EXERCISE STRESS AGE: 50 SEX: Male HT: 72" WT: 260 pounds PROTOCOL: Rob STAGE: III DURATION OF EXERCISE: 9 minutes 6 seconds. HEART RATE REST: 82 BLOOD PRESSURE REST: 138/69 MAXIMUM HEART RATE ACHIEVED: 163 MAXIMUM BLOOD PRESSURE: 220/56 85% MPHR: 143 100% MPHR: 168 METS: 10.5 INDICATIONS: Fatigue, malaise. CLINICAL INFORMATION: Baseline rhythm is a sinus mechanism, rate of 82, normal axis and intervals, poor R progression. Baseline blood pressure 138/69 mmHg. Patient exercised on Rob protocol for 9 minutes and 6 seconds reaching peak rate 163 beats per minute which is equal to 97% maximum predicted heart rate. Peak blood pressure 220/56 mmHg. Test was terminated secondary to fatigue. There was no chest pain. Electrocardiograph monitoring revealed rare single PVCs. There was no evidence of diagnostic ischemic ST deviation. CONCLUSION: 1. Average exercise tolerance with rare single PVCs. 2. Normal electrocardiographic stress testing with no evidence of stress-induced ischemia. 3. Borderline hypertensive response to exercise. MMODL / IJN: [id number] /
--- NOTE | 2020-11-24 17:20 | ECHOF ---
Referral Reason:R53.81 malaise and fatigue MEASUREMENTS -------- HEIGHT: 182.9 cm WEIGHT: 117.9 kg BP: RVIDd: 3.8 cm (< 3.3) IVSd: 1.5 cm (0.6 - 1.1) LVIDd: 4.4 cm (3.9 - 5.3) LVPWd: 1.6 cm (0.6 - 1.1) IVSs: 1.7 cm LVIDs: 3.1 cm LVPWs: 2.2 cm LAESV Index (A-L): 19.65 ml/m Ao Diam: 3.3 cm (2.0 - 3.7) AV Cusp: 2.5 cm (1.5 - 2.6) MV EXCURSION: 14.991 mm (> 18.000) MV EF SLOPE: 90 mm/s (70 - 150) EPSS: 0.7 cm MV E Richard: 0.83 m/s MV DecT: 251 ms MV A Richard: 0.51 m/s MV E/A Ratio: 1.62 RAP: 5.00 mmHg RVSP: 33.25 mmHg FINDINGS -------- Sinus rhythm. This was a technically difficult study with suboptimal views. The left ventricular size is normal. There is moderate concentric left ventricular hypertrophy. O verall left ventricular systolic function is normal with, an EF between 55 - 60 %. The diastolic fi lling pattern is normal for the age of the patient 10.32. The right ventricle is mild to moderately enlarged. Normal LA size by volume 22+/-6 ml/m2. The right atrial size is normal. 5.0mg of Lumason was utilized for enhancement of images Interatrial and interventricular septum intact. The aortic valve is trileaflet, and appears structurally normal. No aortic stenosis or regurgitation. The mitral valve is normal. There is trace to mild mitral regurgitation. Mild tricuspid regurgitation present. Right ventricular systolic pressure is normal at < 35 mmHg. The right ventricular systolic pressure, as measured by Doppler, is 33.25mmHg. The pulmonic valve was not well visualized. There is no pulmonic regurgitation present. The aortic root size is normal. IVC Not well visulized. There is no pericardial effusion. CONCLUSIONS -------- 1. There is moderate concentric left ventricular hypertrophy. 2. Overall left ventricular systolic function is normal with, an EF between 55 - 60 %. 3. The right ventricle is mild to moderately enlarged. 4. Normal LA size by volume 22+/-6 ml/m2. 5. The aortic valve is trileaflet, and appears structurally normal. No aortic stenosis or regurgitati on. 6. There is trace to mild mitral regurgitation. 7. Mild tricuspid regurgitation present. 8. There is no pericardial effusion. [employer] REPLACER: Sabrina Prajapati RDCS
== END | disposition home or self-care (01) ==
LOC: RADECHMAIN 07:37
PROVIDERS: ATTEND Family Medicine
DX: I08.1 Rheumatic disorders of both mitral and tricuspid valves (principal); I10 Essential (primary) hypertension
CPT/HCPCS: 93017; 93306; Q9950

== ENCOUNTER → 2020-11-24 | Outpatient (CLI) | payer BC ==
--- NOTE | 2020-11-24 09:30 | MR ---
EXAMINATION TYPE: MR angio head wo con DATE OF EXAM: 11/24/2020 COMPARISON: CTA head October 30, 2020 HISTORY: Left side facial weakness/numbness, [place] palsy TECHNIQUE: Time of flight images focusing on the [place] were performed without contrast.. 2-D and 3-D postprocessing imaging is performed on independent workstation. FINDINGS: There is dominant left vertebral artery filling the basilar artery redemonstrated. There is hypoplastic or occluded distal right vertebral artery redemonstrated. There is small caliber but pat ent right posterior communicating artery redemonstrated. Hypoplastic left posterior communicating art raquel noted. No significant focal stenosis or aneurysmal change. Patent anterior communicating artery. No significant focal stenosis or aneurysmal change is identifie d in the anterior circulation. IMPRESSION: No significant focal stenosis or aneurysmal change at the level of the [place].
== END | disposition home or self-care (01) ==
LOC: RADMRIMAIN 07:33
PROVIDERS: ATTEND Nurse Practitioner Adult Health
DX: G51.0 Bell's palsy (principal)
CPT/HCPCS: 70544

== ENCOUNTER → 2021-03-15 | Outpatient (CLI) | payer BC ==
[2021-03-15 11:10] LABS: African American GFR (CKD) >90 (>60 ml/min/1.73 sqM); Blood Urea Nitrogen 16 mg/dL (9-20); Non-African American GFR(CKD) >90 (>60 ml/min/1.73 sqM)
--- NOTE | 2021-03-15 12:53 | CT ---
EXAMINATION TYPE: CT ChestAbdPelvis w con DATE OF EXAM: 03/15/2021 COMPARISON: 09/14/2020 HISTORY: Follow up lymphoma. No complaints at time of scan. CT DLP: 2304.7 mGycm CONTRAST: CT scan of the chest, abdomen and pelvis is performed with Oral Contrast and with IV Contrast, patien t injected with 100 mL of Isovue 300. CT Chest: LUNGS: The lungs are clear and free of infiltrate or atelectasis. No pulmonary nodule or mass is det ected. No pleural effusion or CT evidence of interstitial lung disease. MEDIASTINUM: Thoracic aorta is of normal caliber. The heart is not enlarged. No evidence for media stinal mass or adenopathy. HILAR STRUCTURES: No evidence for mass. No hilar adenopathy is appreciated. OTHER: Stable 2.5 cm left axillary lymph node identified. Smaller subcentimeter lymph nodes noted wit hin the left axilla as well. CONTRAST CT ABDOMEN AND PELVIS FINDINGS: LIVER/GB: There is evidence of hepatic steatosis. No calcified gallstones. No space occupying hepa tic lesion. Biliary tree is of normal caliber. PANCREAS: No inflammation. No distinct mass. SPLEEN: No splenic enlargement. No lesion seen. ADRENALS: No nodule. No thickening. KIDNEYS/BLADDER: No hydronephrosis. No nephrolithiasis. Stable cyst upper pole right kidney measuri ng 1.9 cm. BOWEL: Normal appendix. Normal bowel caliber. No inflammation. GENITAL ORGANS: No gross abnormality. LYMPH NODES: Lymph nodes within the small bowel mesentery persists particularly within the right of m idline measuring up to 1.4 cm versus 1.4 cm previously. Periaortic and aortocaval lymph nodes are sub centimeter in size currently. Subcentimeter lymph nodes within the region of the chandler hepatis. AORTA: No significant abnormality. OSSEOUS STRUCTURES: No significant abnormality is seen. OTHER: No significant additional abnormality is seen. IMPRESSION: 1. Stable adenopathy as discussed above. No new lymph nodes appreciated.
== END | disposition home or self-care (01) ==
LOC: RADCTMAIN 10:30
PROVIDERS: ATTEND Internal Medicine Hematology & Oncology
DX: R59.0 Localized enlarged lymph nodes (principal)
CPT/HCPCS: 82565; 84520; 71260; 74177; 36415; Q9967

== ENCOUNTER → 2021-08-23 | Outpatient (CLI) | payer OTHER ==
--- NOTE | 2021-08-24 08:21 | US ---
EXAMINATION TYPE: US thyroid st tissue head/neck DATE OF EXAM: 08/23/2021 COMPARISON: NONE CLINICAL HISTORY: 51-year-old male R45.5 Other Somatoform Disorder. Pt states difficulty swallowing TECHNIQUE: Multiple sonographic images of the thyroid gland are obtained. FINDINGS: GLAND SIZE: Right Lobe: 4.0 x 1.7 x 1.6 cm Overall Parenchyma: homogenous Left Lobe: 3.1 x 1.3 x 1.4 cm Overall Parenchyma: homogeneous Isthmus Thickness: 0.2 cm NODULES RIGHT: # of nodules measured on right: 0 LEFT: # of nodules measured on left: 0 ISTHMUS: # of nodules measured in the isthmus: 0 A prominent 1.1 cm short axis lymph node along the left side of the neck adjacent to the thyroid glan d. IMPRESSION: Normal appearance to the thyroid gland. A prominent but not enlarged 1.1 cm left sided lymph node adj acent to the thyroid gland probably reactive. Clinical follow-up recommended. Three-month follow-up u ltrasound can also be considered to ensure stability/resolution.
== END | disposition home or self-care (01) ==
LOC: RADUSWWP 16:24
PROVIDERS: ATTEND Family Medicine
DX: R45.5 Hostility (principal)
CPT/HCPCS: 76536

== ENCOUNTER → 2021-09-16 | Outpatient (CLI) | payer OTHER ==
[2021-09-16 07:39] LABS: African American GFR (CKD) >90 (>60 ml/min/1.73 sqM); Blood Urea Nitrogen 14 mg/dL (9-20); Non-African American GFR(CKD) >90 (>60 ml/min/1.73 sqM)
--- NOTE | 2021-09-16 08:59 | CT ---
EXAMINATION TYPE: CT soft tissue neck w con DATE OF EXAM: 09/16/2021 HISTORY: Follow up to Lymphoma (originated Lt arm pit) diagnosed November 2016 COMPARISON: Prior PET/CT July 01, [address] DLP: 639.7 mGycm. Automated Exposure Control for Dose Reduction was Utilized. TECHNIQUE: CT scan of the neck is performed with IV Contrast, patient injected with 100 mL of Isovue 300, axial images are obtained, coronal and sagittal reformatted images are reviewed. FINDINGS: Airway: No gross abnormality seen. Parotid/submandibular glands: No gross abnormality seen. Carotid/Vascular Structures: Dense calcified plaque distal dominant left vertebral artery axial image 83 . Hypoplastic or stenotic nondominant distal right vertebral artery. Osseous Structures: [id number] multilevel spurring mid to lower cervical spine with moderate disc space narrowing C4-C5 and C6-C7 levels. Posterior spur disc complex is some spurring effaces ant erior thecal sac at these levels along with superior C3 level where there is prominent spur seen sagi ttal image 45. Other: There are stable prominent but subcentimeter left neck lymph node adjacent to the carotid and jugular vessels. There are prominent but subcentimeter bilateral submandibular lymph nodes redemonstr ated. No new greater than 1 cm lymph nodes. Please refer to same day CT chest abdomen and pelvis report for complete details on the upper lungs. IMPRESSION: No new greater than 1 cm adenopathy in the neck.
--- NOTE | 2021-09-16 09:08 | CT ---
EXAMINATION TYPE: CT ChestAbdPelvis w con DATE OF EXAM: 09/16/2021 COMPARISON: CT March 15, [address] PET CT is 2017. HISTORY: Follow up to Lymphoma (originated Lt arm pit) CT DLP: 2916.3 mGycm. Automated Exposure Control for Dose Reduction was Utilized. CONTRAST: CT scan of the thorax, abdomen and pelvis is performed with oral and with IV Contrast, patient inject ed with 100 mL of Isovue 300. FINDINGS: LUNGS: The lungs remain grossly clear, there aren't no concerning new greater than 5 mm parenchymal m asses or nodules identified. There is no pleural effusion or pneumothorax seen. The tracheobronchi al tree is patent. MEDIASTINUM: There are no new greater than 1 cm hilar or mediastinal lymph nodes. No cardiomegaly o r pericardial effusion is seen. Mild coronary calcification in the LAD distribution. OTHER: Stable prominent but subcentimeter left axillary level 2 and 3 lymph nodes posterior and media l to the pectoralis axial images 10 and 12 for reference. Stable prominent right axillary lymph node axial image 15 with retained fatty hilum. LIVER/GB: No significant abnormality is appreciated. PANCREAS: No significant abnormality is seen. SPLEEN: No significant abnormality is seen. ADRENALS: No significant abnormality is seen. KIDNEYS: Delayed phase imaging performed due to CT neck study. Normal excretion bilaterally without h ydronephrosis. Stable 2.0 cm thin-walled cyst laterally right kidney upper midpole level axial image 70. BOWEL: Oral contrast does not reach terminal ileum. No suspicious small or large bowel dilatation. GENITAL ORGANS: No gross abnormality seen. LYMPH NODES: No new greater than 1cm abdominal or pelvic lymph nodes are appreciated. Stable subcenti meter mesenteric lymph nodes throughout the mid abdomen. OSSEOUS STRUCTURES: Mild to moderate disc space narrowing with endplate sclerosis and moderate anteri or spurring L2-L3 level. OTHER: Small fat-containing right inguinal hernia. IMPRESSION: No new or enlarging adenopathy to suggest active lymphoma recurrence. No significant estella nge from most recent CT.
== END | disposition home or self-care (01) ==
LOC: RADCTMAIN 06:44
PROVIDERS: ATTEND Internal Medicine Hematology & Oncology
DX: C85.94 Non-Hodgkin lymphoma, unspecified, lymph nodes of axilla and upper limb (principal)
CPT/HCPCS: 82565; 84520; 70491; 71260; 74177; 36415; Q9967

== ENCOUNTER → 2022-09-06 | Outpatient (CLI) | payer OTHER ==
[2022-09-06 13:27] LABS: African American GFR (CKD) >90 (>60 ml/min/1.73 sqM); Blood Urea Nitrogen 18 mg/dL (9-20); Non-African American GFR(CKD) >90 (>60 ml/min/1.73 sqM)
--- NOTE | 2022-09-06 14:56 | CT ---
EXAMINATION TYPE: CT ChestAbdPelvis w con DATE OF EXAM: 09/06/2022 COMPARISON: Most recent CT September 16, 2021 and older studies HISTORY: Follow up for Hodgkin's lymphoma originated at left axillary region 2017. CT DLP: 2318.5 mGycm. Automated Exposure Control for Dose Reduction was Utilized. CONTRAST: CT scan of the thorax, abdomen and pelvis is performed with oral and with IV Contrast, patient inject ed with 100ml mL of Isovue 300. FINDINGS: LUNGS: The lungs remain grossly clear, there is no new concerning greater than 5 mm parenchymal donald s or nodules identified. There is no pleural effusion or pneumothorax seen. The tracheobronchial t ree is patent. MEDIASTINUM: There are no new greater than 1 cm hilar or mediastinal lymph nodes. No cardiomegaly o r pericardial effusion is seen. Mild coronary calcification in the LAD distribution is redemonstrate d. OTHER: Stable prominent but subcentimeter left axillary level 2 and 3 lymph nodes posterior and media l to the pectoralis axial images 15 through 17 current study. Stable enlarged left axillary lymph nod e axial image measuring 2.3 x 1.9 cm axial image 16 from most recent CTs. Stable prominent right axil ander lymph node with retained central fatty hilum axial image 20. LIVER/GB: No significant abnormality is appreciated. PANCREAS: No significant abnormality is seen. SPLEEN: No significant abnormality is seen. ADRENALS: No significant abnormality is seen. KIDNEYS: Normal excretion bilaterally without hydronephrosis. Stable 2.0 cm thin-walled cyst laterall y right kidney upper to midpole level axial image 31 series 5. BOWEL: Oral contrast does not reach terminal ileum. No suspicious small or large bowel dilatation. GENITAL ORGANS: No gross abnormality seen. LYMPH NODES: Stable subcentimeter mesenteric and retroperitoneal lymph nodes throughout the abdomen. Slow growing bilateral iliac chain lymph nodes, for reference there is 1.4 x 1.0 cm lymph node axial image 113. For reference there is 1.4 x 1.2 cm lateral left iliac chain lymph node axial image 113. P rominent but subcentimeter bilateral groin lymph nodes are redemonstrated. Stable proximal right comm on iliac chain lymph node measuring 1.4 x 1.0 cm axial image 105 from last several CTs. OSSEOUS STRUCTURES: Mild to moderate disc space narrowing with endplate sclerosis and moderate anteri or spurring L2-L3 level. OTHER: Small to moderate sized fat-containing right inguinal hernia. IMPRESSION: Slow growing slightly suspicious pelvic iliac chain lymph nodes bilaterally. Stable enlar ged left axillary lymph node. Consider repeat PET/CT to evaluate for possible active lymphoma recurre nce.
== END | disposition home or self-care (01) ==
LOC: RADCTMAIN 11:39
PROVIDERS: ATTEND Internal Medicine Hematology & Oncology
DX: Z03.89 Encounter for observation for other suspected diseases and conditions ruled out (principal); C81.04 Nodular lymphocyte predominant Hodgkin lymphoma, lymph nodes of axilla and upper limb
CPT/HCPCS: 82565; 84520; 71260; 74177; 36415; Q9967

== ENCOUNTER → 2023-03-30 | Outpatient (CLI) | payer OTHER ==
[2023-03-30 16:16] LABS: African American GFR (CKD) >90 (>60 ml/min/1.73 sqM); Blood Urea Nitrogen 15 mg/dL (9-20); Non-African American GFR(CKD) >90 (>60 ml/min/1.73 sqM)
--- NOTE | 2023-03-31 13:02 | CT ---
EXAMINATION TYPE: CT ChestAbdPelvis w con DATE OF EXAM: 03/30/2023 COMPARISON: 09/06/22 HISTORY: Lymphoma CT DLP: 2275.5 mGycm CONTRAST: CT scan of the chest, abdomen and pelvis is performed with Oral Contrast and with IV Contrast, patien t injected with 100ml mL of Isovue 300. CT Chest: LUNGS: The lungs are clear and free of infiltrate or atelectasis. No pulmonary nodule or mass is det ected. No pleural effusion or CT evidence of interstitial lung disease. MEDIASTINUM: Thoracic aorta is of normal caliber. The heart is not enlarged. No evidence for media stinal mass or adenopathy. HILAR STRUCTURES: No evidence for mass. No hilar adenopathy is appreciated. OTHER: Enlarged left axillary lymph node is redemonstrated and currently measures 2.1 x 1.7 cm versus 2.4 x 1.9 cm. No new axillary adenopathy appreciated. CONTRAST CT ABDOMEN AND PELVIS FINDINGS: LIVER/GB: No calcified gallstones. No space occupying hepatic lesion. Biliary tree is of normal ca liber. PANCREAS: No inflammation. No distinct mass. SPLEEN: No splenic enlargement. No lesion seen. ADRENALS: No nodule. No thickening. KIDNEYS/BLADDER: No hydronephrosis. No nephrolithiasis. No distinct solid renal mass. 2 cm cyst mi dpole right kidney. BOWEL: Normal appendix. Normal bowel caliber. No inflammation. GENITAL ORGANS: No gross abnormality. LYMPH NODES: No greater than 1cm abdominal or pelvic lymph nodes are appreciated. Right iliac chain lymph node seen previously currently measures 10 mm processes maximal measurement of 14 mm previously . AORTA: No significant abnormality. OSSEOUS STRUCTURES: No significant abnormality is seen. OTHER: No significant additional abnormality is seen. IMPRESSION: 1. Persistent but slightly improved left axillary adenopathy. 2. Right iliac chain lymph node measures 1 cm improvement from prior study.
== END | disposition home or self-care (01) ==
LOC: RADCTMAIN 14:31
PROVIDERS: ATTEND Internal Medicine Hematology & Oncology
DX: C81.04 Nodular lymphocyte predominant Hodgkin lymphoma, lymph nodes of axilla and upper limb (principal)
CPT/HCPCS: 82565; 84520; 71260; 74177; 36415; Q9967

== ENCOUNTER → 2024-02-19 | Outpatient (CLI) | payer OTHER ==
[2024-02-19 15:16] LABS: African American GFR (CKD) >90 (>60 ml/min/1.73 sqM); Blood Urea Nitrogen 16 mg/dL (9-20); Non-African American GFR(CKD) >90 (>60 ml/min/1.73 sqM)
--- NOTE | 2024-02-19 22:24 | CT ---
EXAMINATION TYPE: CT ChestAbdPelvis w con DATE OF EXAM: 02/19/2024 COMPARISON: 03/30/2023 and 09/06/2022 HISTORY: 53-year-old male C81.04 Annual f/u history of Hodgkin's lymphoma TECHNIQUE: Contiguous axial scanning of the chest, abdomen, and pelvis performed with IV Contrast, pa tient injected with 100 mL of Isovue 300. Delayed images through the kidneys were obtained. Coronal/s agittal reconstructions performed. CT DLP: 2002 mGycm Automated exposure control for dose reduction was used. FINDINGS: CHEST: Heart is normal size without pericardial effusion. Mild proximal LAD coronary artery calcifications. Aorta normal caliber with conventional arch vessel branching anatomy. Left axillary nodularity measuring 2.3 cm is unchanged. Otherwise, no thoracic lymphadenopathy by CT size criteria. Lungs show no consolidation or pleural effusion. There is mild bronchial wall thickening which may be seen with bronchitis or asthma. ABDOMEN: Tiny hiatal hernia. Liver enlarged at 18.4 cm with at least mild fatty infiltration. No focal liver lesion. Portal venous system is patent. No biliary ductal dilatation. Phrygian cap. No abnormal gallbladder distention. Adrenal glands, left kidney, spleen, and pancreas within normal limits. Benign 2.1 cm right renal cortical cyst. Symmetric uptake and excretion of contrast from the kidneys. No dilated small bowel, free fluid, or free air. A few scattered prominent but nonenlarged mesenteric lymph nodes measuring up to 1.0 cm remain uncha nged. No new or progressive adenopathy seen in the abdomen. Scattered [id number] stool. No pericolonic inflammatory change. PELVIS: Bladder partially distended. Prostate gland measures 4.2 cm wide. No abnormal fluid collection the pe lvis or pelvic lymphadenopathy. Left-sided pelvic phleboliths. BONES: Mild degenerative change of the hips. Degenerative bony ankylosis bilateral SI joints. Moderate degen erative disc disease L2-L3. Anterior endplate spondylosis mid to lower thoracic spine. No osseous hilda tructive process seen IMPRESSION: 1. STABLE 2.3 CM LEFT AXILLARY NODE. NO OTHER LYMPHADENOPATHY OR EVIDENCE FOR DISEASE PROGRESSION IN THE CHEST, ABDOMEN, OR PELVIS. 2. MILD HEPATOMEGALY AT 18.4 CM WITH AT LEAST MILD HEPATIC STEATOSIS. TINY HIATAL HERNIA.
== END | disposition home or self-care (01) ==
LOC: RADCTMAIN 14:18
PROVIDERS: ATTEND Internal Medicine Hematology & Oncology
DX: C81.04 Nodular lymphocyte predominant Hodgkin lymphoma, lymph nodes of axilla and upper limb (principal); K76.0 Fatty (change of) liver, not elsewhere classified; R16.0 Hepatomegaly, not elsewhere classified; K44.9 Diaphragmatic hernia without obstruction or gangrene; E11.9 Type 2 diabetes mellitus without complications; I10 Essential (primary) hypertension; J45.909 Unspecified asthma, uncomplicated; Z71.3 Dietary counseling and surveillance
CPT/HCPCS: 82565; 84520; 71260; 74177; 36415; Q9967

== ENCOUNTER → 2025-02-24 | Outpatient (CLI) | payer OTHER ==
[2025-02-24 07:43] LABS: African American GFR (CKD) >90 (>60 ml/min/1.73 sqM); Blood Urea Nitrogen 12 mg/dL (9-20); Non-African American GFR(CKD) >90 (>60 ml/min/1.73 sqM)
--- NOTE | 2025-02-24 10:11 | CT ---
EXAMINATION TYPE: CT ChestAbdPelvis w con CT DLP: 2187.70 mGycm, Automated exposure control for dose reduction was used. DATE OF EXAM: 02/24/2025 9:20 AM COMPARISON: Multiple CT chest abdomen pelvis with most recent 02/19/2024. CLINICAL INDICATION:Male, 54 years old with history of C81.04 LYMPHOMA; PHH, Lymphoma, annual follow up Technique: Multiple axial images of the chest, abdomen, and pelvis were obtained following the intrav enous administration of 100 mL Isovue-300. Oral contrast was administered. Two-dimensional coronal an d sagittal reconstructions were obtained. Findings: CHEST: LUNGS/ PLEURA: No pleural effusion, pneumothorax, or focal consolidation. No suspicious pulmonary nod ule or mass. AIRWAY: Patent and unremarkable.. HEART: Size within normal limits. . No pericardial effusion. Mild coronary artery calcifications pres ent. MEDIASTINUM: No evidence of adenopathy. VASCULATURE: No aortic aneurysm. MUSCULOSKELETAL: No acute osseous abnormalities. No aggressive osseous lesion. Multilevel degenerativ e disc disease. SOFT TISSUES/LYMPH NODES: Minimal bilateral gynecomastia. Marginal decrease in size of left axillary 2.0 cm lymph node, previously 2.3 cm. LOWER NECK: No significant findings. ABDOMEN: ABDOMEN LIVER: No focal lesion. Mildly enlarged measuring 18.8 cm in CC dimension. GALLBLADDER AND BILE DUCTS: Unremarkable. PANCREAS: Unremarkable. SPLEEN: Unremarkable. ADRENAL GLANDS: Unremarkable. KIDNEYS AND URETERS: No evidence of hydronephrosis or renal calculus. The kidneys enhance symmetrica lly. Right renal subcentimeter cortical upper pole cyst. Additional right mid kidney 2.[address] No follow-up recommended. Contrast is demonstrated within both collecting systems on the delayed phase. PELVIS BLADDER: Unremarkable REPRODUCTIVE: Unremarkable. ABDOMEN & PELVIS STOMACH AND BOWEL: Stomach and duodenum are unremarkable. Enteric contrast reaches the hepatic flexur e. No focal bowel wall thickening or surrounding inflammatory changes. No evidence of bowel obstructi on. PERITONEUM: No evidence of pneumoperitoneum or free fluid. VASCULATURE: No evidence of aortic aneurysm. MUSCULOSKELETAL: No acute osseous abnormalities. No aggressive osseous lesion. Multilevel degenerativ e disc disease. Most pronounced at L2-L3. Degenerative changes of the bilateral SI joints with anteri or bridging. LYMPH NODES: No evidence for lymphadenopathy. SOFT TISSUE/ABDOMINAL WALL: Small fat filled right inguinal hernia. IMPRESSION: 1. Marginal decrease in size of 2.0 cm left axillary lymph node. Previously 2.3 cm. No other lymphade nopathy or evidence for disease progression within the chest, abdomen or pelvis. 2. Mild hepatomegaly. [facility], , 02/24/2025 10:09 AM
== END | disposition home or self-care (01) ==
LOC: RADCTMAIN 06:50
PROVIDERS: ATTEND Internal Medicine Hematology & Oncology
DX: C81.04 Nodular lymphocyte predominant Hodgkin lymphoma, lymph nodes of axilla and upper limb (principal); E11.9 Type 2 diabetes mellitus without complications; I10 Essential (primary) hypertension; J45.909 Unspecified asthma, uncomplicated; R16.0 Hepatomegaly, not elsewhere classified; Z71.3 Dietary counseling and surveillance
CPT/HCPCS: 82565; 84520; 71260; 74177; 36415; Q9967

== ENCOUNTER → 2025-03-18 | Outpatient (CLI) | payer OTHER ==
--- NOTE | 2025-03-19 07:23 | MR ---
EXAMINATION TYPE: MR shoulder RT wo con DATE OF EXAM: 03/18/2025 5:59 PM COMPARISON: None. CLINICAL INDICATION: Male, 54 years old with history of S46.001A INJ MUSC/TEND THE ROTATOR CUFF OF R SHOULDER, Right shoulder pain for 3 weeks due to lifting heavy object. IV Contrast: cc (None if empty) TECHNIQUE: Multiplanar, multisequence imaging of the right shoulder is performed without contrast. FINDINGS: Rotator Cuff: Fluid signal surrounds the infraspinatus distal muscle with some increased signal in th e tendon. There is full-thickness retracted tear of the supraspinatus tendon. Intact subscapularis te ndon. Rotator cuff muscle bulk is preserved. Acromioclavicular Joint: Moderate narrowing and mild/moderate spurring. Mild capsular hypertrophy. Lo ss of underlying fat plane on sagittal image 20 for reference. Correlate for suspected impingement. Glenohumeral Joint: Small to moderate size joint effusion. Narrowing is present. No significant spurr ing. Labrum: Increased signal superior labrum consistent with tear. Biceps Tendon: The long head of biceps is in normal location within bicipital groove. Some heterogene ous thickening and increased signal intracapsular portion. Bone marrow signal: Subchondral cyst lateral humeral head. Other: No additional significant abnormality is appreciated. IMPRESSION: 1. Full-thickness retracted tear of the supraspinatus tendon. Myotendinous of the infraspinatus tendo n/muscle. 2. Superior labral tear. 3. Zlvs-[id number] degenerative changes are present as detailed above. 4. Chronic tendinosis of the intracapsular portion long head of biceps tendon. [facility], , 03/19/2025 7:20 AM
== END | disposition home or self-care (01) ==
LOC: RADMRIMAIN 17:00
PROVIDERS: ATTEND Orthopaedic Surgery
DX: S46.001A Unspecified injury of muscle(s) and tendon(s) of the rotator cuff of right shoulder, initial encounter (principal); M19.011 Primary osteoarthritis, right shoulder; M75.121 Complete rotator cuff tear or rupture of right shoulder, not specified as traumatic; M67.813 Other specified disorders of tendon, right shoulder

== ENCOUNTER 2025-05-30 10:15 | Day surgery (SDC) | payer OTHER ==
[2025-05-28 14:54] VITALS: BMI 33.9
[~2025-05-30 10:15] MED LIST changes: -LACTATED RINGERS 1,000 ML IV SCH; -LIDOCAINE 1% (10MG/ML) FOR IV START INTRADERMA PRN; +Pre Op ABX Message 1 EACH MISC MISCELLANE ONE
[2025-05-30] MEDS ORDERED: HYDROmorphone 0.5 MG/0.5 ML SYRINGE IVP PRN (10:42)
[2025-05-30] MEDS ORDERED: LIDOCAINE 1% (10MG/ML) FOR IV START INTRADERMA PRN (10:42)
[2025-05-30] MEDS ORDERED: fentaNYL (PF) 50 MCG/ML 2 ML AMP IVP PRN (10:42)
[2025-05-30] MEDS: IV FLUID CONTINUATION 1,000 ML IV ONE (11:01)
[2025-05-30] MEDS: LACTATED RINGERS 1,000 ML IV SCH (11:01)
[2025-05-30] MEDS: ONDANSETRON 4 MG/2 ML VIAL IVP ONE (11:06)
[2025-05-30] MEDS: DEXAMETHASONE SOD PHOSPHATE 4 MG/ML 1 ML VIAL IV ONE (11:06)
[2025-05-30 11:11] LABS: Glucose,Whole Blood 123 mg/dL (70-110)
[2025-05-30] MEDS: MIDAZOLAM 2 MG/2 ML VIAL IV PRN (11:32)
--- NOTE | 2025-05-30 11:52 | P.ANPRN ---
Procedure Note - Anesthesia - Nerve Block Performed Right Interscalene Single Time Out Performed: Yes Date of Procedure: 05/30/25 Procedure Start Time: 11:33 Procedure Stop Time: 11:37 Location of Patient: PreOp Indication: Acute Post-Operative Pain, Analgesia, Requested by Surgeon Sedation Type: Sedate with meaningful contact maintained Preparation: Sterile Prep Position: Sitting Catheter: None Needle Types: Pajunk Needle Gauge: 21 Ultrasound used to visualize needle placement: Yes Ultrasound used to observe medication spread: Yes Injectate: 0.5% Ropivacaine (see comment for volume) (Ropivacaine 20 mL plus Decadron 4 mg. Negative nerve stimulation at 0.5 mA.) Blood Aspirated: No Pain Paresthesia on Injection Noted: No Resistance on Injection: Normal Image Stored and Saved: Yes Events: Uneventful and Well Tolerated
[2025-05-30] MEDS ORDERED: LIDOCAINE 1% INJ 10MG/ML (20 ML MDV) ONE (12:23)
[2025-05-30] MEDS ORDERED: MIDAZOLAM 2 MG/2 ML VIAL ONE (12:23)
[2025-05-30] MEDS ORDERED: DEXAMETHASONE SOD PHOSPHATE 4 MG/ML 1 ML VIAL ONE (12:23)
[2025-05-30] MEDS ORDERED: PROPOFOL 10 MG/ML 20 ML VIAL IV ONE (12:23)
[2025-05-30] MEDS ORDERED: fentaNYL (PF) 50 MCG/ML 2 ML AMP ONE (12:23)
[2025-05-30] MEDS ORDERED: TRANEXAMIC 1,000 MG/100ML-NACL PREMIX BAG ONE (12:23)
[2025-05-30] MEDS ORDERED: SUCCINYLCHOLINE CHLORIDE 200 MG/10 ML VIAL IV ONE (12:23)
[2025-05-30] MEDS ORDERED: ROCURONIUM 10 MG/ML (5 ML VIAL) IV ONE (12:23)
[2025-05-30] MEDS ORDERED: ROPIVACAINE 5 MG/ML 30 ML VIAL ONE (12:23)
[2025-05-30] MEDS: SODIUM CHLORIDE 0.9% 50 ML with ceFAZolin 2,000 MG IV ONE (12:23)
--- NOTE | 2025-05-30 14:32 | P.OP ---
Date of Procedure: 05/30/25 Procedure(s) Performed: PREOPERATIVE DIAGNOSES: 1. Right shoulder rotator cuff tendinopathy. 2. Chronic impingement syndrome. 3. Acromioclavicular osteoarthritis. 4. Superior labral degenerative tear. POSTOPERATIVE DIAGNOSES: 1. Right shoulder rotator cuff tear (full thickness supraspinatus and in fraspinatus, 3 cm). 2. Chronic impingement syndrome. 3. Acromioclavicular osteoarthritis. 4. Labral degenerative tear. 5. Mild adhesive capsulitis PROCEDURES PERFORMED: 1. Right shoulder arthroscopy with rotator cuff repair 2. Arthroscopic partial distal clavicle excision 3. Arthroscopic lysis of adhesions and manipulation under anesthesia 4. Arthroscopic subacromial decompression 5. Arthroscopic debridement superior labral tear ANESTHESIA: General. ESTIMATED BLOOD LOSS: Less than 25 mL TOURNIQUET: None COBOL MAINFRAME DEVELOPER: Arely Verde PA-C (assistance with: Positioning, retraction, camera operation, repair, closure, dressing) COMPLICATIONS: None. DISPOSITION: To postanesthesia care unit INDICATIONS: Imtiaz is a 54 year old male with a history of rotator cuff difficulties. MRI was suspicious for a tear, and the patient wishes to have it repaired. I have examined the patient in the office and proposed rotator cuff repair via an arthroscopic or mini-open approach, as well as other procedures to optimize the shoulder and outcome, such as decompression of spurs and debridement of loose or degenerated tissue. I have explained the risks of this surgery as being inclusive of, but not limited to: bleeding, infection, scarring, discomfort, blood vessel and/or nerve damage, need for further surgery, stiffness, persistence or worsening of problems, , and other ri sks. The consent form has been completed and signed. PROCEDURE: Appropriate consent was obtained from the patient. The patient was taken to the operating room and placed in the supine position. General anesthesia was initiated and after confirmation of adequate anesthesia, the patients right shoulder was examined. Initial range of motion showed flexion to 150 abduction to 150, external rotation to 60 and internal rotation to 30. Using Codman's paradox maneuver, the right shoulder was gently stretched and final range of motion after the stretch was for flexion to 180 , abduction to 180, external rotation to 75, and internal rotation to 75 with the arm at 90 abduction. The shoulder was stable. Next, the patient was rotated into the lateral decubitus position and stabilized to the table with a ortega bag and padded straps. Care was taken to make sure that all pressure points were adequately padded. Bear-hugger was used along with bilateral leg sequential compression devices. Prepping and draping was completed in the usual aseptic fashion using ChloraPrep. The patient received intravenous antibiotics prior to incision. The shoulder was suspended from traction with 10 lbs. of weight in a position of 45 degrees abduction. Landmarks were outlined with a skin marking pen. A spinal needle was inserted into the glenohumeral joint and fluid was administered to distend the joint. A posterior portal was created using an 11 blade and the arthroscopic canula, over a dull trocar, was carefully inserted into the joint. Arthroscopy then commenced. An anterior portal was inserted in the rotator interval area using inside-out technique. Biceps tendon was normal. Subscapularis and teres minor attachments were normal. Hyaline cartilage of the glenoid and humeral head showed degenerative changes typical for age. There was evidence of a full-thickness supraspinatus and infraspinatus rotator cuff tear with mild retraction. No loose bodies were noted in the joint. Superior labrum showed some degenerative tearing but was well-attached. Negative peel back sign. There was also evidence of minor degenerative labral tearing in the inferior area. Loose fibers of labrum in this area were debrided away back to stable labrum. Synovitis was noted superior to the superior labrum and within the rotator interval. This was debrided and removed where the capsule appeared inflamed, using an arthroscopic shaver. Attention was then directed to the subacromial space. The camera and instruments were redirected into the subacromial space and bursoscopy was performed. The patients bursa was inflamed and thickened, indicating chronic bursitis. There also appear to be significant degenerative adhesions present within the lateral gutter anterior gutter and posterior gutter. These adhesions were lysed using a shaver and radiofrequency and attention was paid to meticulous hemostasis with the ArthroCare device. A lateral portal was created using outside-in technique. The supraspinatus tendon was examined particularly closely. There was an approximately 3 cm full-thickness tear, involving the supraspinatus and infraspinatus attachments. The loose fibers of the tear were debrided back to stable tissue and the defect in the tendon was repaired arthroscopically after careful preparation of the footprint with андрей and rasp to create a good bleeding surface of bone, see below. The undersurface of the acromion had frictional changes consistent with impingement syndrome. The underside of the acromion anteriorly was cleared of soft tissue using an arthroscopic radiofrequency ablator. Care was taken while using the ablator not to exceed 40 degrees Centigrade within the bursa. The frictional changes of the rotator cuff matched exactly the location of the rotator cuff tear in the critical zone. A formal subacromial decompression was performed using a андрей. Approximately 5.5 mm of material was removed from the anterior-inferior corner of the acromion. This resection was beveled upwards laterally, and carried to the AC joint. The AC joint appeared arthritic with inferior spurring. This spurring was removed with a андрей, co-planing the resec tion with the acromial resection and removing approximately 5 to 6 mm of inferior distal clavicle maximally. The rotator cuff tear was then repaired as follows. Preparation of the supraspinatus footprint was performed using hand rasps , андрей, and shaver. This created a bleeding surface without significant decortication. A reverse mattress suture using Fiber Tape from [employer] was deployed into the torn supraspinatus edge. A 4.75 mm Swivelock anchor was then deployed at the greater tuberosity and the suture tension was adjusted so that there was complete reduction and coverage of the footprint. Loose cuff material adjacent to the fiber tape was tacked down using the accessory stitch within the anchor. Suture tails were then cut. In similar fashion, a second 4.75 mm swivel lock anchor was deployed after a reverse mattress suture using fiber tape was deployed in the anterior leaflet of the tear. At this point, it was noted that there was complete closure of the cuff defect. The repair was stable. Subsequently, 4-0 Monocryl was used to close the portal holes. Steri-strips were applied as well as sterile dressing. The shoulder was then placed into a sling and the patient was transferred to recovery room in stable condition. Sponge and needle counts were correct.
[2025-05-30 14:33] VITALS: TEMP 97
[2025-05-30 15:44] VITALS: BP 148/88; PULSE 78; RESP 18
== END 2025-05-30 15:59 | disposition home or self-care (01) ==
LOC: OR 10:15
PROVIDERS: ATTEND Orthopaedic Surgery
DX: S46.011A Strain of muscle(s) and tendon(s) of the rotator cuff of right shoulder, initial encounter (principal); M75.21 Bicipital tendinitis, right shoulder; M75.01 Adhesive capsulitis of right shoulder; M19.011 Primary osteoarthritis, right shoulder; M75.41 Impingement syndrome of right shoulder; M24.211 Disorder of ligament, right shoulder; G89.18 Other acute postprocedural pain; I10 Essential (primary) hypertension; E11.9 Type 2 diabetes mellitus without complications; E78.5 Hyperlipidemia, unspecified; G47.33 Obstructive sleep apnea (adult) (pediatric); K21.9 Gastro-esophageal reflux disease without esophagitis; J45.909 Unspecified asthma, uncomplicated; M50.10 Cervical disc disorder with radiculopathy, unspecified cervical region; M48.02 Spinal stenosis, cervical region; H91.90 Unspecified hearing loss, unspecified ear; Z79.1 Long term (current) use of non-steroidal anti-inflammatories (NSAID); Z79.84 Long term (current) use of oral hypoglycemic drugs; Z79.899 Other long term (current) drug therapy; Z87.891 Personal history of nicotine dependence; Z85.72 Personal history of non-Hodgkin lymphomas; Z88.1 Allergy status to other antibiotic agents; Z88.0 Allergy status to penicillin; Z88.2 Allergy status to sulfonamides; X58.XXXA Exposure to other specified factors, initial encounter
CPT/HCPCS: 29827; 29826; 29824; 29825; 64415; C1894; C1713 ×2; J2250; J0330; J1100; J2405; J0690; J2003; J3010; J2795; J2704